=== PATIENT | male | born 1965 | race Caucasian/White ===

== ENCOUNTER 2018-12-29 05:48 | Inpatient (IN) | payer BC ==
[2018-12-28 10:58] VITALS: BMI 28.5
[~2018-12-29] VITALS: Ht 177.8 cm; Wt 93.4 kg
[2018-12-29] VITALS (41 sets, daily range): BP systolic 123–183; BP diastolic 57–104; PULSE 48–89; RESP 10–27; Ht 177.8 cm; Wt 93.4 kg
[2018-12-29] MEDS ORDERED: GELATIN SIZE 100 SPONGE ONE (06:56)
[2018-12-29] MEDS ORDERED: ROPIVACAINE 0.5 % 30 ML VIAL ONE ×2 (06:56→09:08)
[2018-12-29] MEDS ORDERED: THROMBIN (BOVINE) 5,000 UNIT VIAL TP ONE (06:56)
[2018-12-29] MEDS ORDERED: POLYMYXIN/BACITRACIN 1L IRRIG ONE (06:56)
[2018-12-29] MEDS ORDERED: LACTATED RINGER'S 1,000 ML IV SCH (07:00)
[2018-12-29] MEDS ORDERED: CEFAZOLIN 1 GM INJ ONE ×2 (07:00→08:37)
[2018-12-29] MEDS ORDERED: RAMI5CAP64 PO (07:02)
--- NOTE | 2018-12-29 07:10 | PREAC ---
Date/Time of Note Date/Time of Note DATE: 12/29/18 TIME: 07:09 Anesthesia Eval and Record Evaluation Time Pre-Procedure Interview DATE: 12/29/18 TIME: 07:09 Age 53 Sex male NPO: 8 hrs Preoperative diagnosis cervical spinal stenosis Planned procedure posterior cervical laminectomies and foraminotomies C3-C7 with instrumentation Past Medical History Past Medical History: Includes Cardio: HTN Surgery & Anesthesia Issues No known issue Meds Anticoagulation: No Beta Kyaw within 24 hr: No Reason Beta Kyaw not given: Pt. not on B-Kyaw Reported Medications Ramipril (Ramipril) 5 Mg Capsule, 5 MG PO EVERY OTHER DAY, CAP 12/29/18 Current Medications Lactated Ringer's 1,000 ml @ 25 mls/hr Q24H IV Last administered on 12/29/18at 07:06; Admin Dose 25 MLS/HR; Start 12/29/18 at 07:00 Meds reviewed: Yes Allergies Coded Allergies: No Known Allergy (Unverified , 12/28/18) Allergies Reviewed: Yes Labs/Studies Labs Reviewed: Reviewed by anesthesiologist Result Diagram: 12/29/18 0620 Laboratory Tests 12/29/18 06:20 test: N/A Pre-procedure Exam Last vitals Vital Signs Date Temp Pulse Resp B/P (MAP) Pulse Ox O2 O2 Flow FiO2 Time Delivery Rate 12/29/18 97.6 59 18 158/93 96 Room Air 06:53 (114) Airway: Adequate mouth opening, Adequate thyromental dist Mallampati: Mallampati II Teeth: Normal Lung: Normal Heart: Normal ASA Physical Status ASA physical status: 2 Emergency: None Planned Anesthetic General/MAC: ETT, A Line Planned Pain Management Parenteral pain med Pre-operative Attestations Prior to commencing anesthesia and surgery, the patient was re-evaluated, there was verification of: *The patient's identity *The results of appropriate recent lab work and preoperative vital signs *The above evaluation not changing prior to induction *Anesthetic plan, risk benefits, alternative and complications discussed with patient/family; questions answered; patient/family understands, accepts and wishes to proceed. RODRIGO AMBRIZ MD December 29, 2018 07:10
[2018-12-29] MEDS ORDERED: SOD CHLORIDE 0.9% 250 ML IV* ONE (07:24)
[2018-12-29] MEDS ORDERED: FENTAnyl 50 MCG/ML VIAL IV PRN ×2 (07:30)
[2018-12-29] MEDS ORDERED: MEPERIDINE 25 MG INJ IV PRN (07:30)
[2018-12-29] MEDS ORDERED: HYDROmorphONE 1 MG/5 ML IV SYRINGE IV PRN ×3 (07:30)
[2018-12-29] MEDS ORDERED: PROCHLORPERAZINE 10 MG INJ IV PRN (07:30)
[2018-12-29] MEDS ORDERED: LABETALOL HCL 20MG INJ IV PRN (07:30)
[2018-12-29] MEDS ORDERED: hydrALAzine 20 MG INJ IV PRN (07:30)
[2018-12-29] MEDS ORDERED: ONDANSETRON 4 MG INJ IV PRN (07:30)
[2018-12-29] MEDS ORDERED: DIPHENHYDRAMINE 50 MG INJ IV PRN (07:30)
[2018-12-29] MEDS ORDERED: PROPOFOL 20 ML ONE ×2 (08:07→08:57)
[2018-12-29] MEDS ORDERED: LIDOCAINE 2% (SDV) 5 ML INJ ONE (08:07)
[2018-12-29] MEDS ORDERED: MIDAZOLAM 1 MG/ML 2 ML INJ ONE (08:08)
[2018-12-29] MEDS ORDERED: ROCURONIUM 50 MG INJ ONE (08:09)
--- NOTE | 2018-12-29 08:13 | HPN ---
Date/Time of Note Date/Time of Note DATE: 12/29/18 TIME: 08:11 Interval H&P Admission Note Pt. seen H&P reviewed: No system changes Neurosurgery Preop Surgery Note Extensive d/w patient about all available options including surgery vs no surgery. Overall risk/complications 3-5 % overall discussed with patient at bedside. Dr. Mccullough discussed all risk/complications at bedside and all questions answered, no guarantees given. Post op IICU KATIE NORRIS NP December 29, 2018 08:13
[2018-12-29] MEDS ORDERED: DEXAMETHASONE 4 MG/ML 5 ML INJ ONE (08:37)
[2018-12-29] MEDS ORDERED: ONDANSETRON 4 MG INJ ONE (08:37)
[2018-12-29] MEDS ORDERED: EPHEDrine 25 MG/5 ML SYG ONE (08:37)
[2018-12-29] MEDS ORDERED: FAMOTIDINE 20 MG INJ ONE (08:37)
[2018-12-29] MEDS ORDERED: SUCCINYLCHOLINE CHLORIDE 100 MG/5 ML SYG IV ONE (09:06)
[2018-12-29] MEDS ORDERED: HYDROmorphONE 2 MG/ML SYG ONE (09:47)
[2018-12-29] MEDS ORDERED: GLYCOPYRROLATE 0.4 MG INJ ONE (10:45)
[2018-12-29] MEDS ORDERED: NEOSTIGMINE 3 MG/3 ML SYRINGE ONE (10:45)
--- NOTE | 2018-12-29 11:30 | OPPN ---
Date/Time of Note Date/Time of Note DATE: 12/29/18 TIME: 11:29 Operative Report Preoperative Diagnosis Cervical Myelopathy Postoperative Diagnosis same Operation/Procedure Performed PCDF C3-7 decompression and fusion Surgeon see signature line curatorial assistant SAMUEL Galvez, ACNP-BC Anesthesia: general Estimated blood loss: 50 - 100 ml's Transfusion Required none Specimen C3-7 Bones and Ligaments Grafts/Implants none Complications none MARTA ARMSTRONG MD December 29, 2018 11:30
--- NOTE | 2018-12-29 11:36 | PAC ---
Date/Time of Note Date/Time of Note DATE: 12/29/18 TIME: 11:35 Post-Anesthesia Notes Post-Anesthesia Note Last documented vital signs Vital Signs Date Temp Pulse Resp B/P (MAP) Pulse Ox O2 O2 Flow FiO2 Time Delivery Rate 12/29/18 97.6 59 18 158/93 96 Room Air 06:53 (114) Activity: WNL Respiratory function: WNL Cardiovascular function: WNL Mental status: Baseline Pain reasonably controlled: Yes Hydration appropriate: Yes Nausea/Vomiting absent: Yes Comments BP: 139/80 HR: 78 RR: 15 T: 98 SaO2: 100% RODRIGO AMBRIZ MD December 29, 2018 11:36
[2018-12-29] MEDS: FENTAnyl 50 MCG/ML VIAL IV PRN ×2 (11:40→12:05)
[2018-12-29] MEDS ORDERED: NACL 0.9% 3 ML SYG IV SCH (12:00)
[2018-12-29] MEDS ORDERED: NALOXONE (0.4 MG/ML) INJ IV PRN (12:00)
--- NOTE | 2018-12-29 13:17 | HP ---
Date/Time of Note Date/Time of Note DATE: 12/29/18 TIME: 13:13 Assessment/Plan Lines/Catheters IV Catheter Type (from Nrsg): Peripheral IV Assessment/Plan Assessment/Plan sp PCDF C3-7 decompression and fusion - Admit to ICU - per neuro surgery - pain control - wound care Cervical Myelopathy Hypertension Dw STAFF Result Diagram: 12/29/18 0620 12/29/18 0620 Results 24hrs Laboratory Tests Test 12/29/18 06:20 White Blood Count 3.4 L Red Blood Count 5.27 Hemoglobin 13.1 L Hematocrit 40.4 L Mean Corpuscular Volume 76.7 L Mean Corpuscular Hemoglobin 24.9 L Mean Corpuscular Hemoglobin Concent 32.4 Red Cell Distribution Width 13.7 Platelet Count 162 Mean Platelet Volume 11.1 H Immature Granulocytes % 0.600 H Neutrophils % 49.7 Lymphocytes % 37.2 Monocytes % 9.6 Eosinophils % 2.0 Basophils % 0.9 Nucleated Red Blood Cells % 0.0 Immature Granulocytes # 0.020 Neutrophils # 1.7 Lymphocytes # 1.3 Monocytes # 0.3 Eosinophils # 0.1 Basophils # 0.0 Nucleated Red Blood Cells # 0.0 CBC Results Faxed/Phoned 1 *H Prothrombin Time 12.8 Prothrombin Time Ratio 1.0 INR International Normalized Ratio 0.95 Activated Partial Thromboplast Time 28.8 Sodium Level 141 Potassium Level 3.9 Chloride Level 104 Carbon Dioxide Level 28 Anion Gap 9 Blood Urea Nitrogen 17 Creatinine 0.85 Est Glomerular Filtrat Rate mL/min > 60 Glucose Level 113 Calcium Level 10.0 Total Bilirubin 1.5 H Direct Bilirubin 0.00 Indirect Bilirubin 1.5 H Aspartate Amino Transf (AST/SGOT) 27 Alanine Aminotransferase (ALT/SGPT) 38 Alkaline Phosphatase 42 Total Protein 7.9 Albumin 4.5 Globulin 3.40 H Albumin/Globulin Ratio 1.32 HPI/ROS Admit Date/Time Admit Date/Time December 29, 2018 at 05:48 PMH/Family/Social Past Medical History Medications Current Medications Lactated Ringer's 1,000 ml @ 25 mls/hr Q24H IV Last administered on 12/29/18at 07:06; Admin Dose 25 MLS/HR; Start 12/29/18 at 07:00 Hydromorphone HCl (Dilaudid) 0.2 mg PACU PRN IV MILD PAIN 1-3; Start 12/29/18 at 07:30; Stop 12/29/18 at 17:00 Hydromorphone HCl (Dilaudid) 0.4 mg PACU PRN IV MOD PAIN 4-6; Start 12/29/18 at 07:30; Stop 12/29/18 at 17:00 Hydromorphone HCl (Dilaudid) 0.6 mg PACU PRN IV SEVERE PAIN 7-10 Last administered on 12/29/18at 12:22; Admin Dose 0.6 MG; Start 12/29/18 at 07:30; Stop 12/29/18 at 17:00 Fentanyl (Sublimaze) 25 mcg PACU ORDER PRN IV MILD PAIN 1-3; Start 12/29/18 at 07:30; Stop 12/29/18 at 17:00 Fentanyl (Sublimaze) 50 mcg PACU ORDER PRN IV MOD PAIN 4-6 Last administered on 12/29/18at 12:05; Admin Dose 50 MCG; Start 12/29/18 at 07:30; Stop 12/29/18 at 17:00 Fentanyl (Sublimaze) 75 mcg PACU ORDER PRN IV SEVERE PAIN 7-10; Start 12/29/18 at 07:30; Stop 12/29/18 at 17:00 Ondansetron HCl (Zofran Inj) 4 mg PACU ORDER PRN IV NAUSEA/VOMITING Last administered on 12/29/18at 12:22; Admin Dose 4 MG; Start 12/29/18 at 07:30; Stop 12/29/18 at 17:00 Prochlorperazine (Compazine Inj) 5 mg PACU ORDER PRN IV NAUSEA/VOMITING; Start 12/29/18 at 07:30; Stop 12/29/18 at 17:00 Labetalol HCl (Labetalol) 5 mg PACU ORDER PRN IV HIGH BLOOD PRESSURE; Start 12/29/18 at 07:30; Stop 12/29/18 at 17:00 Hydralazine HCl (Apresoline) 5 mg PACU ORDER PRN IV HIGH BLOOD PRESSURE; Start 12/29/18 at 07:30; Stop 12/29/18 at 17:00 Meperidine HCl (Demerol) 25 mg PACU ORDER PRN IV .RIGORS; Start 12/29/18 at 07:30; Stop 12/29/18 at 17:00 Diphenhydramine HCl (Benadryl) 25 mg PACU ORDER PRN IV .PRURITUS; Start 12/29/18 at 07:30; Stop 12/29/18 at 17:00 IV Flush (NS 3 ml) 3 ml PER PROTOCOL IV ; Start 12/29/18 at 12:00 Naloxone HCl (Narcan) 0.2 mg Q2M PRN IV RR 8 BREATHS/MIN OR LESS; Start 12/29/18 at 12:00 Cefazolin Sodium/ Dextrose 50 ml @ 100 mls/hr Q8 IVPB ; Start 12/29/18 at 14:00; Stop 01/01/19 at 14:00 Potassium Chloride/Sodium Chloride 1,000 ml @ 100 mls/hr Q10H IV ; Start 12/29/18 at 12:00 Acetaminophen/ Hydrocodone Bitart ([place] (10/325)) 1 tab Q4H PRN PO MODERATE PAIN LEVEL 4-6; Start 12/29/18 at 12:00 Hydromorphone HCl (Dilaudid) 1 mg Q4H PRN IV SEVERE PAIN LEVEL 7-10; Start 12/29/18 at 12:00 Coded Allergies: No Known Allergy (Unverified , 12/28/18) Social History Smoking Status: Never smoker Exam/Review of Systems Vital Signs Vitals Vital Signs Date Temp Pulse Resp B/P (MAP) Pulse Ox O2 O2 Flow FiO2 Time Delivery Rate 12/29/18 74 13 174/82 100 Mask 12:13 (112) 12/29/18 98.0 11:57 12/29/18 8.0 11:35 Exam Constitutional: alert, well developed Psych: nl mood/affect Eyes: nl lids, nl sclera ENMT: nl external ears & nose Respiratory: diminished breath sounds Cardiovascular: nl pulses, other (S1S2) Gastrointestinal: soft, non-tender Musculoskeletal: nl extremities to inspection Extremities: normal pulses Neurological: other (SP CX surgery- neck collar noted) ZOE MANUEL December 29, 2018 13:17
[2018-12-29] MEDS: HYDROmorphONE 1 MG/ML SYG IV PRN ×4 (13:51→23:37)
[2018-12-29] MEDS: CEFAZOLIN 2 GM/50 ML (PMX) 50 ML IVPB SCH ×2 (14:41→22:36)
[2018-12-29] MEDS: NS + KCL 20 MEQ 1,000 ML IV SCH ×2 (14:42→22:00)
[2018-12-29] MEDS: HYDROCODONE/APAP (10/325) TAB PO PRN (15:08)
--- NOTE | 2018-12-29 15:58 | RADRPT ---
Vent Rate: 56 bpm RR Interval: 1064 msec MD Interval: 164 msec QRS Duration: 102 msec QT Interval: 428 msec QTC Interval: 415 msec P-R-T [place]: 51 - 70 - 58 degrees Sinus Bradycardia...normal P axis, V-rate 50- 99 Electronically Signed By: Chung Heck
[2018-12-29] MEDS: hydrALAzine 20 MG INJ IV PRN (18:30)
[2018-12-29] MEDS: METOPROLOL 25 MG TAB PO SCH (20:17)
[2018-12-30] VITALS (34 sets, daily range): BP systolic 128–197; BP diastolic 56–87; PULSE 62–88; RESP 10–23
[2018-12-30] MEDS: HYDROmorphONE 1 MG/ML SYG IV PRN ×2 (02:35→20:55)
[2018-12-30] MEDS: NS + KCL 20 MEQ 1,000 ML IV SCH ×2 (02:48→13:16)
[2018-12-30] MEDS: HYDROCODONE/APAP (10/325) TAB PO PRN ×4 (06:21→17:05)
[2018-12-30] MEDS: CEFAZOLIN 2 GM/50 ML (PMX) 50 ML IVPB SCH ×3 (06:21→21:50)
[2018-12-30] MEDS: METOPROLOL 25 MG TAB PO SCH (08:38)
[2018-12-30] MEDS: hydrALAzine 20 MG INJ IV PRN (08:43)
[2018-12-30] MEDS ORDERED: METOPROLOL 25 MG TAB PO STA (09:48)
[2018-12-30] MEDS: BENAZEPRIL 20 MG TAB PO SCH (11:25)
--- NOTE | 2018-12-30 17:13 | PN ---
Date/Time of Note Date/Time of Note DATE: 12/30/18 TIME: 17:13 Assessment/Plan VTE Prophylaxis Risk score (from Ns)>0 risk: 3 SCD applied (from Ns): Yes Lines/Catheters IV C[facility] Type [facility]from [facility] A Line Urinary Cath still in place: Yes Assessment/Plan Result Diagram: 12/30/18 0436 12/30/18 0436 Results 24hrs Laboratory Tests Test 12/30/18 04:36 White Blood Count 9.1 # Red Blood Count 4.53 L Hemoglobin 11.3 L Hematocrit 35.2 L Mean Corpuscular Volume 77.7 L Mean Corpuscular Hemoglobin 24.9 L Mean Corpuscular Hemoglobin Concent 32.1 Red Cell Distribution Width 13.9 Platelet Count 178 Mean Platelet Volume 11.0 H Immature Granulocytes % 0.300 Neutrophils % 81.1 H Lymphocytes % 11.3 L Monocytes % 7.0 Eosinophils % 0.1 Basophils % 0.2 Nucleated Red Blood Cells % 0.0 Immature Granulocytes # 0.030 Neutrophils # 7.4 Lymphocytes # 1.0 Monocytes # 0.6 Eosinophils # 0.0 Basophils # 0.0 Nucleated Red Blood Cells # 0.0 Sodium Level 136 Potassium Level 4.6 Chloride Level 100 Carbon Dioxide Level 28 Anion Gap 8 Blood Urea Nitrogen 12 Creatinine 0.81 Est Glomerular Filtrat Rate mL/min > 60 Glucose Level 129 Calcium Level 9.0 Exam/Review of Systems Exam Vitals Vital Signs Date Temp Pulse Resp B/P (MAP) Pulse Ox O2 O2 Flow FiO2 Time Delivery Rate 12/30/18 70 20 149/60 99 Room Air 16:30 (89) 12/30/18 98.1 16:00 12/29/18 2.0 21:00 Intake and Output 12/29/18 12/29/18 12/30/18 1515:00 23:00 07:00 IntakeIntake Total 1750 ml 1570 ml 940 ml OutputOutput Total 1280 ml 900 ml 740 ml BalanceBalance 470 ml 670 ml 200 ml Results Results 24hrs Laboratory Tests Test 12/30/18 04:36 White Blood Count 9.1 # Red Blood Count 4.53 L Hemoglobin 11.3 L Hematocrit 35.2 L Mean Corpuscular Volume 77.7 L Mean Corpuscular Hemoglobin 24.9 L Mean Corpuscular Hemoglobin Concent 32.1 Red Cell Distribution Width 13.9 Platelet Count 178 Mean Platelet Volume 11.0 H Immature Granulocytes % 0.300 Neutrophils % 81.1 H Lymphocytes % 11.3 L Monocytes % 7.0 Eosinophils % 0.1 Basophils % 0.2 Nucleated Red Blood Cells % 0.0 Immature Granulocytes # 0.030 Neutrophils # 7.4 Lymphocytes # 1.0 Monocytes # 0.6 Eosinophils # 0.0 Basophils # 0.0 Nucleated Red Blood Cells # 0.0 Sodium Level 136 Potassium Level 4.6 Chloride Level 100 Carbon Dioxide Level 28 Anion Gap 8 Blood Urea Nitrogen 12 Creatinine 0.81 Est Glomerular Filtrat Rate mL/min > 60 Glucose Level 129 Calcium Level 9.0 Medications Medication Current Medications IV Flush (NS 3 ml) 3 ml PER PROTOCOL IV ; Start 12/29/18 at 12:00 Naloxone HCl (Narcan) 0.2 mg Q2M PRN IV RR 8 BREATHS/MIN OR LESS; Start 12/29/18 at 12:00 Cefazolin Sodium/ Dextrose 50 ml @ 100 mls/hr Q8 IVPB Last administered on 12/30/18at 14:52; Admin Dose 100 MLS/HR; Start 12/29/18 at 14:00; Stop 01/01/19 at 14:00 Potassium Chloride/Sodium Chloride 1,000 ml @ 100 mls/hr Q10H IV Last administered on 12/30/18at 13:16; Admin Dose 100 MLS/HR; Start 12/29/18 at 12:00 Acetaminophen/ Hydrocodone Bitart ([place] (10/325)) 1 tab Q4H PRN PO MODERATE PAIN LEVEL 4-6 Last administered on 12/30/18at 17:05; Admin Dose 1 TAB; Start 12/29/18 at 12:00 Hydralazine HCl (Apresoline) 20 mg Q6H PRN IV ELEVATED BLOOD PRESSURE Last administered on 12/30/18at 08:43; Admin Dose 20 MG; Start 12/29/18 at 18:30 Hydromorphone HCl (Dilaudid) 1 mg Q3H PRN IV SEVERE PAIN LEVEL 7-10 Last administered on 12/30/18at 02:35; Admin Dose 1 MG; Start 12/29/18 at 18:30 Metoprolol Tartrate (Lopressor) 50 mg BID PO ; Start 12/30/18 at 21:00 Benazepril HCl (Lotensin) 20 mg DAILY PO Last administered on 12/30/18at 11:25; Admin Dose 20 MG; Start 12/30/18 at 11:00 MARTA ARMSTRONG MD December 30, 2018 17:13
[2018-12-30] MEDS: METOPROLOL 50 MG TAB PO SCH (20:03)
[2018-12-31] VITALS (10 sets, daily range): BP systolic 132–150; BP diastolic 72–88; PULSE 50–74; RESP 18–20
[2018-12-31] MEDS: HYDROmorphONE 1 MG/ML SYG IV PRN ×4 (00:08→14:25)
--- NOTE | 2018-12-31 00:42 | PN ---
DATE: 12/30/2018 LOCATION: ICU. SUBJECTIVE: The patient is breathing comfortably. Postoperative pain still persists. The patient's blood pressure is better controlled today. No reported temperature spike. No reported vomiting. N o reported abdominal pain. The patient moves all extremities. He remains awake and alert. Left rad ial art line in place. PHYSICAL EXAMINATION: GENERAL: Revealed the patient to be awake, alert. VITAL SIGNS: Temperature 97.8, pulse 68, respirations , blood pressure 150/70, O2 sat 96% on ro om air. HEENT: No eye discharge or redness. Conjunctivae are normal. NECK: C-spine collar in place. CHEST: Fairly clear. CARDIOVASCULAR: S1, S2 normal. No murmur. ABDOMEN: Soft, nondistended, nontender. EXTREMITIES: No edema. NEUROLOGIC: The patient is awake, alert, fairly oriented. LABORATORY DATA: Labs done this morning: WBC 9.1, hemoglobin 9.3, platelet 178. Chemistry: Sodium 136, potassium 4.6, BUN 12, creatinine 0.8, glucose 129, calcium 9. IMPRESSION: 1. Cervical myelopathy due to cervical spinal stenosis, status post surgery. 2. Hypertension. Last night, patient's blood pressure was out of control and the patient was starte d on metoprolol, and subsequently his home medication, benazepril, was also resumed. The patient rem ains on IV hydralazine on a p.r.n. basis. PLAN: Continue IV Dilaudid q.3 hours p.r.n. for pain control, IV cefazolin as per protocol. The pat ient will be moved out of ICU once cleared by Neurosurgery. We will continue to monitor him closely in ICU. Left radial art line in place. Dictated By: VIOLETTE WRIGHT MD AB/NTS Conf#: [id number] DID#: [id number] CC: MARTA ARMSTRONG MD;*EndCC*
[2018-12-31] MEDS: CEFAZOLIN 2 GM/50 ML (PMX) 50 ML IVPB SCH ×3 (06:05→22:31)
[2018-12-31] MEDS: BENAZEPRIL 20 MG TAB PO SCH (08:22)
[2018-12-31] MEDS: METOPROLOL 50 MG TAB PO SCH ×2 (08:22→20:20)
[2018-12-31] MEDS: HYDROCODONE/APAP (10/325) TAB PO PRN ×3 (10:44→20:38)
--- NOTE | 2018-12-31 12:10 | PN ---
Date/Time of Note Date/Time of Note DATE: 12/31/18 TIME: 12:09 Assessment/Plan VTE Prophylaxis Risk score (from Ns)>0 risk: 4 SCD applied (from Ns): Yes Pharmacological prophylaxis: LMWH Lines/Catheters IV Catheter Type (from Nrsg): Saline Lock Urinary Cath still in place: Yes Reason Cath still needed: skin wounds contaminated by urine Assessment/Plan Hospital Course 1. Cervical myelopathy due to cervical spinal stenosis, status post surgery. 2. Hypertension. Last night, patient's blood pressure was out of control and the patient was started on metoprolol, and subsequently his home medication, benazepril, was also resumed. The patient remains on IV hydralazine on a p.r.n. basis. Result Diagram: 12/30/18 0436 12/30/18 0436 Subjective 24 Hr Interval Summary Free Text/Dictation Still has some neck pain Exam/Review of Systems Exam Vitals Vital Signs Date Temp Pulse Resp B/P (MAP) Pulse Ox O2 O2 Flow FiO2 Time Delivery Rate 12/31/18 73 08:12 12/31/18 98.6 18 150/80 98 Room Air 08:04 (103) 12/29/18 2.0 21:00 Intake and Output 12/30/18 12/30/18 12/31/18 1414:59 22:59 06:59 IntakeIntake Total 1900 ml 650 ml 600 ml OutputOutput Total 1980 ml 1070 ml 1585 ml BalanceBalance -80 ml -420 ml -985 ml Constitutional: well developed Head: normocephalic, atraumatic Neck: supple Respiratory: diminished breath sounds Cardiovascular: regular rate and rhythm Gastrointestinal: soft, non-tender Extremities: normal pulses Medications Medication Current Medications IV Flush (NS 3 ml) 3 ml PER PROTOCOL IV ; Start 12/29/18 at 12:00 Naloxone HCl (Narcan) 0.2 mg Q2M PRN IV RR 8 BREATHS/MIN OR LESS; Start 12/29/18 at 12:00 Cefazolin Sodium/ Dextrose 50 ml @ 100 mls/hr Q8 IVPB Last administered on 12/31/18at 06:05; Admin Dose 100 MLS/HR; Start 12/29/18 at 14:00; Stop 01/01/19 at 14:00 Acetaminophen/ Hydrocodone Bitart ([place] (10/325)) 1 tab Q4H PRN PO MODERATE PAIN LEVEL 4-6 Last administered on 12/31/18 10:44; Admin Dose 1 TAB; Start 12/29/18 at 12:00 Hydralazine HCl (Apresoline) 20 mg Q6H PRN IV ELEVATED BLOOD PRESSURE Last administered on 12/30/18 08:43; Admin Dose 20 MG; Start 12/29/18 at 18:30 Hydromorphone HCl (Dilaudid) 1 mg Q3H PRN IV SEVERE PAIN LEVEL 7-10 Last administered on 12/31/18 07:25; Admin Dose 1 MG; Start 12/29/18 at 18:30 Metoprolol Tartrate (Lopressor) 50 mg BID PO Last administered on 12/31/18 08:22; Admin Dose 50 MG; Start 12/30/18 at 21:00 Benazepril HCl (Lotensin) 20 mg DAILY PO Last administered on 12/31/18 08:22; Admin Dose 20 MG; Start 12/30/18 at 11:00 BRITTON RESENDEZ December 31, 2018 12:10
[2018-12-31] MEDS: METHOCARBAMOL 750 MG TAB PO PRN (19:27)
[2019-01-01] VITALS (10 sets, daily range): BP systolic 131–147; BP diastolic 80–95; PULSE 60–72; RESP 16–20
[2019-01-01] MEDS: HYDROCODONE/APAP (10/325) TAB PO PRN ×6 (00:39→22:55)
[2019-01-01] MEDS: CEFAZOLIN 2 GM/50 ML (PMX) 50 ML IVPB SCH ×2 (05:43→13:58)
[2019-01-01] MEDS: METHOCARBAMOL 750 MG TAB PO PRN ×2 (06:34→20:03)
[2019-01-01] MEDS: BENAZEPRIL 20 MG TAB PO SCH (10:19)
[2019-01-01] MEDS: METOPROLOL 50 MG TAB PO SCH ×2 (10:19→20:03)
--- NOTE | 2019-01-01 12:51 | PN ---
Date/Time of Note Date/Time of Note DATE: 01/01/19 TIME: 12:50 Assessment/Plan VTE Prophylaxis Risk score (from Ns)>0 risk: 3 SCD applied (from Ns): Yes Pharmacological prophylaxis: LMWH Lines/Catheters IV Catheter Type (from Nrsg): Saline Lock Urinary Cath still in place: Yes Reason Cath still needed: skin wounds contaminated by urine Assessment/Plan Hospital Course 1. Cervical myelopathy due to cervical spinal stenosis, status post surgery. 2. Hypertension. Last night, patient's blood pressure was out of control and the patient was started on metoprolol, and subsequently his home medication, benazepril, was also resumed. The patient remains on IV hydralazine on a p.r.n. basis. Result Diagram: 12/30/18 0436 12/30/18 0436 Subjective 24 Hr Interval Summary Free Text/Dictation Patient still has pain in back but is starting to mobilize Exam/Review of Systems Exam Vitals Vital Signs Date Temp Pulse Resp B/P (MAP) Pulse Ox O2 O2 Flow FiO2 Time Delivery Rate 01/01/19 67 12:36 01/01/19 98.7 16 146/80 98 Room Air 12:04 (102) 12/29/18 2.0 21:00 Intake and Output 12/31/18 12/31/18 01/01/19 1515:00 23:00 07:00 IntakeIntake Total 1250 ml 50 ml OutputOutput Total 30 ml 50 ml 30 ml BalanceBalance -30 ml 1200 ml 20 ml Constitutional: well developed Head: normocephalic, atraumatic Neck: supple Respiratory: clear to auscultation Cardiovascular: regular rate and rhythm Gastrointestinal: soft, non-tender Extremities: normal pulses Medications Medication Current Medications IV Flush (NS 3 ml) 3 ml PER PROTOCOL IV ; Start 12/29/18 at 12:00 Naloxone HCl (Narcan) 0.2 mg Q2M PRN IV RR 8 BREATHS/MIN OR LESS; Start 12/29/18 at 12:00 Cefazolin Sodium/ Dextrose 50 ml @ 100 mls/hr Q8 IVPB Last administered on 01/01/19at 05:43; Admin Dose 100 MLS/HR; Start 12/29/18 at 14:00; Stop 01/01/19 at 14:00 Acetaminophen/ Hydrocodone Bitart ([place] ()) 1 tab Q4H PRN PO MODERATE PAIN LEVEL 4-6 Last administered on 01/01/19 10:21; Admin Dose 1 TAB; Start 12/29/18 at 12:00 Hydralazine HCl (Apresoline) 20 mg Q6H PRN IV ELEVATED BLOOD PRESSURE Last administered on 12/30/18 08:43; Admin Dose 20 MG; Start 12/29/18 at 18:30 Hydromorphone HCl (Dilaudid) 1 mg Q3H PRN IV SEVERE PAIN LEVEL 7-10 Last ad ministered on 12/31/18 14:25; Admin Dose 1 MG; Start 12/29/18 at 18:30 Metoprolol Tartrate (Lopressor) 50 mg BID PO Last administered on 01/01/19 10:19; Admin Dose 50 MG; Start 12/30/18 at 21:00 Benazepril HCl (Lotensin) 20 mg DAILY PO Last administered on 01/01/19 10:19; Admin Dose 20 MG; Start 12/30/18 at 11:00 Methocarbamol (Robaxin) 750 mg Q8H PRN PO MUSCLE SPASM Last administered on 01/01/19 06:34; Admin Dose 750 MG; Start 12/31/18 at 17:00 BRITTON RESENDEZ January 01, 2019 12:51
[2019-01-01] MEDS: DOCUSATE SODIUM 100 MG CAP PO SCH (13:58)
[2019-01-02] VITALS (10 sets, daily range): BP systolic 139–154; BP diastolic 78–90; PULSE 63–79; RESP 16–20
[2019-01-02] MEDS: HYDROCODONE/APAP (10/325) TAB PO PRN ×4 (03:32→22:40)
[2019-01-02] MEDS: METHOCARBAMOL 750 MG TAB PO PRN ×2 (07:29→20:37)
[2019-01-02] MEDS: BENAZEPRIL 20 MG TAB PO SCH (08:31)
[2019-01-02] MEDS: DOCUSATE SODIUM 100 MG CAP PO SCH (08:31)
[2019-01-02] MEDS: METOPROLOL 50 MG TAB PO SCH ×2 (08:32→20:38)
--- NOTE | 2019-01-02 13:19 | PN ---
Date/Time of Note Date/Time of Note DATE: 01/02/19 TIME: 13:18 Assessment/Plan VTE Prophylaxis Risk score (from Ns)>0 risk: 3 SCD applied (from Ns): Yes Pharmacological prophylaxis: NA/contraindicated Pharm contraindication: surgical contra Lines/Catheters IV Catheter Type (from Nrsg): Saline Lock Urinary Cath still in place: No Assessment/Plan Hospital Course Patient still complains of pain however it is manageable on current pain medication, continue out of bed and ambulation, continue cervical collar. If patient continues to improve anticipate discharge home tomorrow. Assessment/Plan -Cervical myelopathy due to cervical spinal stenosis, status post PCDF C3-7 decompression and fusion by Dr. Mccullough on 12/29/18. Continue pain management, physical therapy,collar x 6 weeks when oob or HOB > 30 degrees. -Hypertension. Continue metoprolol and benazepril, IV hydralazine on a p.r.n. basis. Further recommendations based on clinical course. Plan of care discussed with Dr. Kirk. Result Diagram: 12/30/18 0436 12/30/18 0436 Exam/Review of Systems Exam Vitals Vital Signs Date Temp Pulse Resp B/P (MAP) Pulse Ox O2 O2 Flow FiO2 Time Delivery Rate 01/02/19 98.0 67 18 145/82 98 12:24 (103) 01/02/19 Room Air 00:00 12/29/18 2.0 21:00 Intake and Output 01/01/19 01/01/19 01/02/19 1515:00 23:00 07:00 IntakeIntake Total 900 ml 2550 ml OutputOutput Total 1130 ml 1140 ml 15 ml BalanceBalance -230 ml 1410 ml -15 ml Constitutional: alert, oriented Neck: other (S/p surgery, cervical collar) Respiratory: clear to auscultation Cardiovascular: regular rate and rhythm Gastrointestinal: soft, non-tender Extremities: normal pulses Neurological: nl mental status Medications Medication Current Medications IV Flush (NS 3 ml) 3 ml PER PROTOCOL IV ; Start 12/29/18 at 12:00 Naloxone HCl (Narcan) 0.2 mg Q2M PRN IV RR 8 BREATHS/MIN OR LESS; Start 12/29/18 at 12:00 Acetaminophen/ Hydrocodone Bitart ([place] (10/325)) 1 tab Q4H PRN PO MODERATE PAIN LEVEL 4-6 Last administered on 01/02/19 12:44; Admin Dose 1 TAB; Start 12/29/18 at 12:00 Hydralazine HCl (Apresoline) 20 mg Q6H PRN IV ELEVATED BLOOD PRESSURE Last administered on 12/30/18 08:43; Admin Dose 20 MG; Start 12/29/18 at 18:30 Hydromorphone HCl (Dilaudid) 1 mg Q3H PRN IV SEVERE PAIN LEVEL 7-10 Last administered on 12/31/18 14:25; Admin Dose 1 MG; Start 12/29/18 at 18:30 Metoprolol Tartrate (Lopressor) 50 mg BID PO Last administered on 01/02/19 08:32; Admin Dose 50 MG; Start 12/30/18 at 21:00 Benazepril HCl (Lotensin) 20 mg DAILY PO Last administered on 01/02/19 08:31; Admin Dose 20 MG; Start 12/30/18 at 11:00 Methocarbamol (Robaxin) 750 mg Q8H PRN PO MUSCLE SPASM Last administered on 01/02/19 07:29; Admin Dose 750 MG; Start 12/31/18 at 17:00 Docusate Sodium (Colace) 100 mg DAILY PO Last administered on 01/02/19 08:31; Admin Dose 100 MG; Start 01/01/19 at 14:00 DANIEL TALAMANTES January 02, 2019 13:19
--- NOTE | 2019-01-02 14:16 | PN ---
Date/Time of Note Date/Time of Note DATE: 01/02/19 TIME: 14:12 Assessment/Plan VTE Prophylaxis Risk score (from Nsg)>0 risk: 3 SCD applied (from Nsg): Yes SCD contraindicated: low risk/ambulating Pharmacological prophylaxis: NA/contraindicated Pharm contraindication: low risk/ambulating Lines/Catheters IV Catheter Type (from Nrsg): Saline [place] line still needed: No Urinary Cath still in place: No Assessment/Plan Assessment/Plan Plan dc planning in am destin drain dc'd okay to shower in am and keep area open to air follow up in 7 days to remove beba collar x 6 weeks when oob or HOB > 30 degrees Result Diagram: 12/30/18 0436 12/30/18 0436 Subjective 24 Hr Interval Summary Free Text/Dictation Neurosurgery Progress note doing well, family at bedside. Exam/Review of Systems Exam Vitals Vital Signs Date Temp Pulse Resp B/P (MAP) Pulse Ox O2 O2 Flow FiO2 Time Delivery Rate 01/02/19 98.0 67 18 145/82 98 12:24 (103) 01/02/19 Room Air 00:00 12/29/18 2.0 21:00 Intake and Output 01/01/19 01/01/19 01/02/19 1515:00 23:00 07:00 IntakeIntake Total 900 ml 2550 ml OutputOutput Total 1130 ml 1140 ml 15 ml BalanceBalance -230 ml 1410 ml -15 ml Neurological: other (MS: AAOX4 CN: PERRL M: fC x 4 ) Medications Medication Current Medications IV Flush (NS 3 ml) 3 ml PER PROTOCOL IV ; Start 12/29/18 at 12:00 Naloxone HCl (Narcan) 0.2 mg Q2M PRN IV RR 8 BREATHS/MIN OR LESS; Start 12/29/18 at 12:00 Acetaminophen/ Hydrocodone Bitart ([place] (10/325)) 1 tab Q4H PRN PO MODERATE PAIN LEVEL 4-6 Last administered on 01/02/19at 12:44; Admin Dose 1 TAB; Start 12/29/18 at 12:00 Hydralazine HCl (Apresoline) 20 mg Q6H PRN IV ELEVATED BLOOD PRESSURE Last administered on 12/30/18at 08:43; Admin Dose 20 MG; Start 12/29/18 at 18:30 Hydromorphone HCl (Dilaudid) 1 mg Q3H PRN IV SEVERE PAIN LEVEL 7-10 Last administered on 12/31/18 14:25; Admin Dose 1 MG; Start 12/29/18 at 18:30 Metoprolol Tartrate (Lopressor) 50 mg BID PO Last administered on 01/02/19 08:32; Admin Dose 50 MG; Start 12/30/18 at 21:00 Benazepril HCl (Lotensin) 20 mg DAILY PO Last administered on 01/02/19 08:31; Admin Dose 20 MG; Start 12/30/18 at 11:00 Methocarbamol (Robaxin) 750 mg Q8H PRN PO MUSCLE SPASM Last administered on 01/02/19 07:29; Admin Dose 750 MG; Start 12/31/18 at 17:00 Docusate Sodium (Colace) 100 mg DAILY PO Last administered on 01/02/19 08:31; Admin Dose 100 MG; Start 01/01/19 at 14:00 MARTA ARMSTRONG MD January 02, 2019 14:16
[2019-01-03] VITALS (10 sets, daily range): BP systolic 124–160; BP diastolic 68–94; PULSE 63–91; RESP 19–20
[2019-01-03] MEDS ORDERED: LIDOCAINE 5% PATCH TD ONE
[2019-01-03] MEDS ORDERED: DICLOFENAC SODIUM 1% GEL 100 GM TUBE TP PRN
[2019-01-03] MEDS: HYDROmorphONE 1 MG/ML SYG IV PRN (01:46)
[2019-01-03] MEDS: HYDROCODONE/APAP (10/325) TAB PO PRN ×3 (05:48→16:54)
[2019-01-03] MEDS: METOPROLOL 50 MG TAB PO SCH (08:30)
[2019-01-03] MEDS: BENAZEPRIL 20 MG TAB PO SCH (08:30)
[2019-01-03] MEDS: DOCUSATE SODIUM 100 MG CAP PO SCH (08:30)
[2019-01-03] MEDS ORDERED: METO-429 PO (16:51)
[2019-01-03] MEDS ORDERED: BENA20TA4 PO (16:51)
[2019-01-03] MEDS ORDERED: METH750T2 PO (16:51)
[2019-01-03] MEDS ORDERED: DOCU-144 PO (16:51)
[2019-01-03] MEDS ORDERED: NEOM28OI2 TP (16:51)
[2019-01-03] MEDS ORDERED: HYDR-4011 PO (16:51)
--- NOTE | 2019-01-03 20:49 | DS ---
Date/Time of Note Date/Time of Note DATE: 01/03/19 TIME: 20:46 Discharge Summary Admission/Discharge Info Admit Date/Time December 29, 2018 at 05:48 Discharge Date/Time January 03, 2019 at 18:30 Patient Condition: Stable Hx of Present Illness The patient is a 53-year-old gentleman with history of hypertension. Patient was evaluated by neurosurgeon for cervical myelopathy due to cervical spinal stenosis. Patient underwent PCDF C3-7 decompression and fusion by Dr. Mccullough on 12/29/18. Hospital Course -Cervical myelopathy due to cervical spinal stenosis, status post PCDF C3-7 decompression and fusion by Dr. Mccullough on 12/29/18. Continue pain management, physical therapy,collar x 6 weeks when oob or HOB > 30 degrees. -Hypertension. Continue metoprolol and benazepril, IV hydralazine on a p.r.n. basis. Plan of care discussed with Dr. Kirk. Home Meds Active Scripts Neomycin Leo/Bacitrac Zn/Poly (Triple Antibiotic Ointment) 28 Gm Oint...g., 28 GM TP BID for 10 Days, #1 Prov:DANIEL TALAMANTES 01/03/19 Methocarbamol* (Methocarbamol*) 750 Mg Tablet, 750 MG PO Q8H PRN for MUSCLE SPASM, #30 TAB Prov:DANIEL TALAMANTES 01/03/19 Hydrocodone/Acetaminophen ([place] 5-325 Tablet) 1 Each Tablet, 1 EACH PO Q4, #20 TAB Prov:DANIEL TALAMANTES 01/03/19 Docusate Sodium* (Colace*) 100 Mg Capsule, 100 MG PO DAILY for 30 Days, CAP Prov:DANIEL TALAMANTES 01/03/19 Benazepril Hcl* (Benazepril Hcl*) 20 Mg Tablet, 20 MG PO DAILY for 30 Days, TAB Prov:DANIEL TALAMANTES 01/03/19 Metoprolol Tartrate* (Lopressor*) 50 Mg Tab, 50 MG PO BID for 30 Days, TAB Prov:DANIEL TALAMANTES 01/03/19 Discontinued Reported Medications Ramipril (Ramipril) 5 Mg Capsule, 5 MG PO EVERY OTHER DAY, CAP 12/29/18 Follow-up Plan Discharge home after DME:toilet seat and walker arranged by case management okay to shower in am and keep area open to air follow up with DR Mccullough in 7 days to remove beba collar x 6 weeks when oob or HOB > 30 degrees Primary Care Provider Not On Staff Doctor Time spent on discharge: > 30 minutes DANIEL TALAMANTES January 03, 2019 20:49
== END 2019-01-03 18:30 | disposition home or self-care (01) | DRG 472 ==
LOC: EDSEX 05:48 → REC 05:48 → EDSTATUS 07:30 → ICU 13:49 → TEL 12-30 22:35
PROVIDERS: ADMIT Neurological Surgery; ATTEND Internal Medicine
PROC: 0RG2071 Fusion of 2 or more Cervical Vertebral Joints with Autologous Tissue Substitute, Posterior Approach, Posterior Column, Open Approach (ICD-10-PCS; principal; 2018-12-29 07:30)
DX: M48.02 Spinal stenosis, cervical region (principal); G99.2 Myelopathy in diseases classified elsewhere; I10 Essential (primary) hypertension
CPT/HCPCS: 71045; 72020; 72125; 80048; 80053; 85025; 85610; 85730; 86850; 86900; 86901; 86920; 87081; 87086; 88304; 88311; 93005; 97116; 97162; 97530; J0360; J0690; J1100; J1170; J2250; J2405; J2710; J2795; J3010; J3480; J7120

== ENCOUNTER 2019-02-13 22:06 | Inpatient (IN) | payer BC ==
[~2019-02-13] VITALS: Ht 177.8 cm; Wt 89.7 kg
[~2019-02-13 22:06] MED LIST: BENA20TA4 PO; DOCU-144 PO; HYDR-4011 PO; METH750T2 PO; METO-429 PO; NEOM28OI2 TP
[2019-02-13] MEDS ORDERED: ONDANSETRON 4 MG INJ IV STA (22:33)
[2019-02-13] MEDS ORDERED: HYDROmorphONE 1 MG/ML SYG IV STA (22:33)
[2019-02-13] MEDS ORDERED: SOD CHLORIDE 0.9% 500 ML IV STA (22:33)
[2019-02-14] MEDS ORDERED: ACETAMINOPHEN 325 MG TAB PO PRN (01:00)
[2019-02-14] MEDS ORDERED: ONDANSETRON 4 MG INJ IV PRN ×2 (01:00→14:00)
--- NOTE | 2019-02-14 02:28 | ERD ---
ER Documentation Chief Complaint Chief Complaint RIGHT LEG; HX OF NERVE PAIN ON/OFF 1MONTH HPI Is a 53-year-old male with a history of nerve impingement causing right leg pain and weakness. He was sent to my neurosurgeon Dr. Mccullough for further evaluation management and admission for pain management. Patient says his pain is gotten intractable over the past 2 to 3 days with no relief with home medications. ROS All systems reviewed and are negative except as per history of present illness. Medications Home Meds Active Scripts Neomycin Leo/Bacitrac Zn/Poly (Triple Antibiotic Ointment) 28 Gm Oint...g., 28 GM TP BID for 10 Days, #1 Prov:BELLE TALAMANTESA 01/03/19 Methocarbamol* (Methocarbamol*) 750 Mg Tablet, 750 MG PO Q8H PRN for MUSCLE SPASM, #30 TAB Prov:DANIEL TALAMANTES 01/03/19 Hydrocodone/Acetaminophen ([place] 5-325 Tablet) 1 Each Tablet, 1 EACH PO Q4, #20 TAB Prov:DANIEL TALAMANTES 01/03/19 Docusate Sodium* (Colace*) 100 Mg Capsule, 100 MG PO DAILY for 30 Days, CAP Prov:DANIEL TALAMANTES 01/03/19 Benazepril Hcl* (Benazepril Hcl*) 20 Mg Tablet, 20 MG PO DAILY for 30 Days, TAB Prov:DANIEL TALAMANTES 01/03/19 Metoprolol Tartrate* (Lopressor*) 50 Mg Tab, 50 MG PO BID for 30 Days, TAB Prov:DANIEL TALAMANTES 01/03/19 Allergies Allergies: Coded Allergies: No Known Allergy (Unverified , 12/28/18) PMhx/Soc History of Surgery: Yes (OPEN APPY, L3-L4, LT KNEE MENISCUS, LAP ANG, RT HAND SX, NOSE SX) Anesthesia Reaction: No Hx Neurological Disorder: No Hx Respiratory Disorders: No Hx Cardiac Disorders: Yes (HTN) Hx Psychiatric Problems: No Hx Miscellaneous Medical Probl: Yes (See note) Hx Alcohol Use: No Hx Substance Use: No Hx Tobacco Use: No Smoking Status: Never smoker Physical Exam Vitals Vital Signs Date Temp Pulse Resp B/P (MAP) Pulse Ox O2 O2 Flow FiO2 Time Delivery Rate 02/14/19 78 16 157/97 99 Room Air 01:00 (117) 02/13/19 98.2 18 19 177/99 99 22:11 (125) Physical Exam Const: No acute distress Head: Atraumatic Eyes: Normal Conjunctiva ENT: Normal External Ears, Nose and Mouth. Neck: Full range of motion. No meningismus. Resp: Clear to auscultation bilaterally Cardio: Regular rate and rhythm, no murmurs Abd: Soft, non tender, non distended. Normal bowel sounds Skin: No petechiae or rashes Back: No midline or flank tenderness Ext: No cyanosis, or edema Neur: Awake and alert Psych: Normal Mood and Affect Result Diagram: 02/13/19224902/13/192249 Results 24 hrs Laboratory Tests Test 02/13/19 22:50 White Blood Count 4.5 10^3/ul Red Blood Count 4.72 10^6/ul Hemoglobin 11.7 g/dl Hematocrit 37.2 % Mean Corpuscular Volume 78.8 fl Mean Corpuscular Hemoglobin 24.8 pg Mean Corpuscular Hemoglobin Concent 31.5 g/dl Red Cell Distribution Width 13.8 % Platelet Count 184 10^3/UL Mean Platelet Volume 10.5 fl Immature Granulocytes % 0.900 % Neutrophils % 55.8 % Lymphocytes % 33.9 % Monocytes % 6.5 % Eosinophils % 2.2 % Basophils % 0.7 % Nucleated Red Blood Cells % 0.0 /100WBC Immature Granulocytes # 0.040 10^3/ul Neutrophils # 2.5 10^3/ul Lymphocytes # 1.5 10^3/ul Monocytes # 0.3 10^3/ul Eosinophils # 0.1 10^3/ul Basophils # 0.0 10^3/ul Nucleated Red Blood Cells # 0.0 10^3/ul Prothrombin Time 12.0 Sec Prothrombin Time Ratio 0.9 INR International Normalized Ratio 0.88 Activated Partial Thromboplast Time 27.9 Sec Sodium Level 140 mmol/L Potassium Level 3.8 mmol/L Chloride Level 102 mmol/L Carbon Dioxide Level 28 mmol/L Anion Gap 10 Blood Urea Nitrogen 14 mg/dl Creatinine 0.86 mg/dl Est Glomerular Filtrat Rate mL/min > 60 mL/min Glucose Level 131 mg/dl Calcium Level 9.7 mg/dl Total Bilirubin 0.7 mg/dl Direct Bilirubin 0.00 mg/dl Indirect Bilirubin 0.7 mg/dl Aspartate Amino Transf (AST/SGOT) 22 IU/L Alanine Aminotransferase (ALT/SGPT) 28 IU/L Alkaline Phosphatase 51 IU/L Total Protein 7.7 g/dl Albumin 4.6 g/dl Globulin 3.10 g/dl Albumin/Globulin Ratio 1.48 Lipase 109 U/L Current Medications Medications Dose Sig/La Start Time Status Last (Trade) Ordered Route PRN Stop Time Admin Dose Reason Admin Sodium 500 ml @ Q1H STAT 02/13/19 DC 02/13/19 Chloride 500 mls/hr IV 22:33 22:58 02/13/19 23:32 1 mg ONCE STAT 02/13/19 DC Hydromorphone IV 22:33 HCl 02/13/19 22:34 (Dilaudid) Ondansetron 4 mg ONCE STAT 02/13/19 DC HCl (Zofran IV 22:33 Inj) 02/13/19 22:34 Ondansetron 4 mg BRIDGE ORDER 02/14/19 HCl (Zofran PRN IV 01:00 Inj) NAUSEA/VOMITI 02/15/19 00:59 NG 650 mg ER BRIDGE 02/14/19 Acetaminophen PRN PO 01:00 (Tylenol .MILD PAIN 02/15/19 00:59 Tab) 1-3 OR TEMP Procedures/MDM Medical decision makin-year-old male here for essentially intractable back pain. Dr. Bard hull is currently accepted patient to his service. Dr. Mccullough will consult. Departure Diagnosis: Primary Impression: Intractable back pain Condition: Stable KO QURESHI Feb 14, 2019 02:28
[2019-02-14] MEDS ORDERED: ASPI-817 PO (02:50)
[2019-02-14] MEDS ORDERED: ERGO500013 PO (02:50)
[2019-02-14] MEDS ORDERED: LORA10TA3 PO (02:50)
[2019-02-14] MEDS ORDERED: RAMI5CAP64 PO (02:50)
[2019-02-14 11:08] VITALS: BP 163/94; PULSE 58; RESP 16
--- NOTE | 2019-02-14 13:27 | HP ---
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 Dr. Mccullough is following in neurosurgery consultation. -Hypertension. Continue metoprolol and benazepril, IV hydralazine on a p.r.n. basis. Further recommendations based on clinical course. Plan of care discussed with Dr. Kirk. Result Diagram: 02/13/190 02/13/19 2250 Results 24hrs Laboratory Tests Test 02/13/19 22:50 White Blood Count 4.5 #L Red Blood Count 4.72 Hemoglobin 11.7 L Hematocrit 37.2 L Mean Corpuscular Volume 78.8 L Mean Corpuscular Hemoglobin 24.8 L Mean Corpuscular Hemoglobin Concent 31.5 L Red Cell Distribution Width 13.8 Platelet Count 184 Mean Platelet Volume 10.5 H Immature Granulocytes % 0.900 H Neutrophils % 55.8 Lymphocytes % 33.9 Monocytes % 6.5 Eosinophils % 2.2 Basophils % 0.7 Nucleated Red Blood Cells % 0.0 Immature Granulocytes # 0.040 H Neutrophils # 2.5 Lymphocytes # 1.5 Monocytes # 0.3 Eosinophils # 0.1 Basophils # 0.0 Nucleated Red Blood Cells # 0.0 Prothrombin Time 12.0 Prothrombin Time Ratio 0.9 INR International Normalized Ratio 0.88 Activated Partial Thromboplast Time 27.9 Sodium Level 140 Potassium Level 3.8 Chloride Level 102 Carbon Dioxide Level 28 Anion Gap 10 Blood Urea Nitrogen 14 Creatinine 0.86 Est Glomerular Filtrat Rate mL/min > 60 Glucose Level 131 Calcium Level 9.7 Total Bilirubin 0.7 Direct Bilirubin 0.00 Indirect Bilirubin 0.7 Aspartate Amino Transf (AST/SGOT) 22 Alanine Aminotransferase (ALT/SGPT) 28 Alkaline Phosphatase 51 Total Protein 7.7 Albumin 4.6 Globulin 3.10 Albumin/Globulin Ratio 1.48 Lipase 109 HPI/ROS Admit Date/Time Admit Date/Time Feb 14, 2019 at 01:00 Hx of Present Illness The patient is a 53-year-old male with history of the lumbar surgery with complaints of worsening lower back pain with right lower extremity radiculopathy. Patient stated that the pain got worse over the last couple of days with no relief with p.o. medication. Patient was seen by Dr. Mccullough in neurosurgery consultation and was sent to the emergency room from his office. Patient denies any fever chills denies any nausea vomiting diarrhea patient denies any shortness of breath, denies any chest pain. ROS 12 point review of system is negative except for what mentioned in HPI PMH/Family/Social Past Medical History Medical History: hypertension Medications Current Medications Ondansetron HCl (Zofran Inj) 4 mg BRIDGE ORDER PRN IV NAUSEA/VOMITING; Start 02/14/19 at 01:00; Stop 02/15/19 at 00:59 Acetaminophen (Tylenol Tab) 650 mg ER BRIDGE PRN PO .MILD PAIN 1-3 OR TEMP; Start 02/14/19 at 01:00; Stop 02/15/19 at 00:59 Coded Allergies: No Known Allergy (Unverified , 12/28/18) Past Surgical History Past Surgical Hx: appendectomy, cholecystectomy, other (status post PCDF C3-7 decompression and fusion by Dr. Mccullough on 12/29/18, status post appendectomy, status post cholecystectomy, status post right hand surgery, status post left knee meniscus surgery, status post surgery in the lumbar spine, status post nose surgery) Family History Significant Family History: no pertinent family hx Social History Alcohol Use: none Smoking Status: Never smoker Drug Use: none Exam/Review of Systems Vital Signs Vitals Vital Signs Date Temp Pulse Resp B/P (MAP) Pulse Ox O2 O2 Flow FiO2 Time Delivery Rate 02/14/19 98.1 58 16 163/94 97 Room Air 11:08 (117) Exam Constitutional: alert, oriented Neck: supple Respiratory: clear to auscultation Cardiovascular: nl pulses Gastrointestinal: soft, non-tender Musculoskeletal: nl extremities to inspection, other (Intractable lower back pain with radiation to right lower extremity) Extremities: normal pulses Neurological: nl mental status Skin: nl DANIEL Bolaños Feb 14, 2019 13:27
[2019-02-14] MEDS ORDERED: hydrALAzine 20 MG INJ IV PRN (13:30)
[2019-02-14 14:00] VITALS: Ht 177.8 cm; Wt 89.7 kg
[2019-02-14] MEDS ORDERED: HYDROmorphONE 1 MG/ML SYG IV PRN (14:00)
[2019-02-14] MEDS: DEXTROSE 5%-0.45% NACL 1,000 ML IV SCH ×2 (14:40→21:36)
--- NOTE | 2019-02-14 15:42 | CONS ---
Assessment/Plan Assessment/Plan Assessment/Plan (Daily) Impression Mechanical LBP with LE radiculopathy Previously evaluated at my office and all images mri lspine - reviewed and noted Plan Candidate for Staged surgical procedure. Anterior Lumbar two through Sacral one interbody fusion using screws today. Posterior fixation to follow in 1-2 days. ICU post op 2 units PRBC on standby Consultation Date/Type/Reason Admit Date/Time Feb 14, 2019 at 01:00 Date/Time of Note DATE: 02/14/19 TIME: 15:37 Hx of Present Illness Neurosurgery Consult Note HPI: 53 y/o male well known to Neurosurgical team and previously seen at my office and evaluated for Mechanical LBP with LE radiculopathy. Pt candidate for Anterior / Posterior decompression fusion. Pt's pain worsened and presented to ED for evaluation. MRI / CT lspine reviewed and noted. pmh/psx: per hpi/chart meds: see med recon ros: per hpi/chart Past Medical History Medical History: hypertension Home Meds Reported Medications Loratadine* (Loratadine*) 10 Mg Tablet, 10 MG PO DAILY for 30 Days, #30 02/14/19 Aspirin* (Aspirin* EC) 81 Mg Tablet.dr, 81 MG PO DAILY for 30 Days, #30 02/14/19 Ramipril (Ramipril) 5 Mg Capsule, 5 MG PO DAILY for 30 Days, #30 02/14/19 Ergocalciferol (Vitamin D2) (VITAMIN D2) 50,000 Unit Capsule, 44101 UNITS PO Q7D 02/14/19 Discontinued Scripts Neomycin Leo/Bacitrac Zn/Poly (Triple Antibiotic Ointment) 28 Gm Oint...g., 28 GM TP BID for 10 Days, #1 Prov:DANIEL TALAMANTES 01/03/19 Methocarbamol* (Methocarbamol*) 750 Mg Tablet, 750 MG PO Q8H PRN for MUSCLE SPASM, #30 TAB Prov:DANIEL TALAMANTES 01/03/19 Hydrocodone/Acetaminophen ([place] 5-325 Tablet) 1 Each Tablet, 1 EACH PO Q4, #20 TAB Prov:DANIEL TALAMANTES 01/03/19 Docusate Sodium* (Colace*) 100 Mg Capsule, 100 MG PO DAILY for 30 Days, CAP Prov:DANIEL TALAMANTES 01/03/19 Benazepril Hcl* (Benazepril Hcl*) 20 Mg Tablet, 20 MG PO DAILY for 30 Days, TAB Prov:DANIEL TALAMANTES 01/03/19 Metoprolol Tartrate* (Lopressor*) 50 Mg Tab, 50 MG PO BID for 30 Days, TAB Prov:DANIEL TALAMANTES 01/03/19 Medications Current Medications Ondansetron HCl (Zofran Inj) 4 mg BRIDGE ORDER PRN IV NAUSEA/VOMITING; Start 02/14/19 at 01:00; Stop 02/15/19 at 00:59 Acetaminophen (Tylenol Tab) 650 mg ER BRIDGE PRN PO .MILD PAIN 1-3 OR TEMP; Start 02/14/19 at 01:00; Stop 02/15/19 at 00:59 Benazepril HCl (Lotensin) 20 mg DAILY PO ; Start 02/15/19 at 09:00 Hydralazine HCl (Apresoline) 10 mg Q4H PRN IV SBP>170; Start 02/14/19 at 13:30 Hydromorphone HCl (Dilaudid) 1 mg Q4H PRN IV SEVERE PAIN LEVEL 7-10; Start 02/14/19 at 14:00 Ondansetron HCl (Zofran Inj) 4 mg Q4H PRN IV NAUSEA AND/OR VOMITING; Start 02/14/19 at 14:00 Dextrose/Sodium Chloride 1,000 ml @ 70 mls/hr [id number] IV Last administered on 02/14/19at 14:40; Admin Dose 70 MLS/HR; Start 02/14/19 at 14:00 Allergies: Coded Allergies: No Known Allergy (Unverified , 12/28/18) Past Surgical History Past Surgical Hx: appendectomy, cholecystectomy, other (status post PCDF C3-7 decompression and fusion by Dr. Armstrong on 12/29/18, status post appendectomy, status post cholecystectomy, status post right hand surgery, status post left k nee meniscus surgery, status post surgery in the lumbar spine, status post nose surgery) Social History Alcohol Use: none Smoking Status: Never smoker Drug Use: none Exam/Review of Systems Exam Vitals Vital Signs Date Temp Pulse Resp B/P (MAP) Pulse Ox O2 O2 Flow FiO2 Time Delivery Rate 02/14/19 98.1 58 16 163/94 97 Room Air 11:08 (117) Constitutional: alert, oriented Psych: no complaints Head: normocephalic Neurological: other (MS: CN: M: S: ) Results Result Diagram: 02/13/190 02/13/19 2250 Results 24hrs Laboratory Tests Test 02/13/19 22:50 White Blood Count 4.5 #L Red Blood Count 4.72 Hemoglobin 11.7 L Hematocrit 37.2 L Mean Corpuscular Volume 78.8 L Mean Corpuscular Hemoglobin 24.8 L Mean Corpuscular Hemoglobin Concent 31.5 L Red Cell Distribution Width 13.8 Platelet Count 184 Mean Platelet Volume 10.5 H Immature Granulocytes % 0.900 H Neutrophils % 55.8 Lymphocytes % 33.9 Monocytes % 6.5 Eosinophils % 2.2 Basophils % 0.7 Nucleated Red Blood Cells % 0.0 Immature Granulocytes # 0.040 H Neutrophils # 2.5 Lymphocytes # 1.5 Monocytes # 0.3 Eosinophils # 0.1 Basophils # 0.0 Nucleated Red Blood Cells # 0.0 Prothrombin Time 12.0 Prothrombin Time Ratio 0.9 INR International Normalized Ratio 0.88 Activated Partial Thromboplast Time 27.9 Sodium Level 140 Potassium Level 3.8 Chloride Level 102 Carbon Dioxide Level 28 Anion Gap 10 Blood Urea Nitrogen 14 Creatinine 0.86 Est Glomerular Filtrat Rate mL/min > 60 Glucose Level 131 Calcium Level 9.7 Total Bilirubin 0.7 Direct Bilirubin 0.00 Indirect Bilirubin 0.7 Aspartate Amino Transf (AST/SGOT) 22 Alanine Aminotransferase (ALT/SGPT) 28 Alkaline Phosphatase 51 Total Protein 7.7 Albumin 4.6 Globulin 3.10 Albumin/Globulin Ratio 1.48 Lipase 109 Medications Medication Current Medications Ondansetron HCl (Zofran Inj) 4 mg BRIDGE ORDER PRN IV NAUSEA/VOMITING; Start 02/14/19 at 01:00; Stop 02/15/19 at 00:59 Acetaminophen (Tylenol Tab) 650 mg ER BRIDGE PRN PO .MILD PAIN 1-3 OR TEMP; Start 02/14/19 at 01:00; Stop 02/15/19 at 00:59 Benazepril HCl (Lotensin) 20 mg DAILY PO ; Start 02/15/19 at 09:00 Hydralazine HCl (Apresoline) 10 mg Q4H PRN IV SBP>170; Start 02/14/19 at 13:30 Hydromorphone HCl (Dilaudid) 1 mg Q4H PRN IV SEVERE PAIN LEVEL 7-10; Start 02/14/19 at 14:00 Ondansetron HCl (Zofran Inj) 4 mg Q4H PRN IV NAUSEA AND/OR VOMITING; Start 02/14/19 at 14:00 Dextrose/Sodium Chloride 1,000 ml @ 70 mls/hr [id number] IV Last administered on 02/14/19at 14:40; Admin Dose 70 MLS/HR; Start 02/14/19 at 14:00 MARTA ARMSTRONG MD Feb 14, 2019 15:42
[2019-02-14 16:00] VITALS: BP 161/82; PULSE 68; RESP 19
--- NOTE | 2019-02-14 18:48 | PREAC ---
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 Planned procedure anterior lumbar partial or complete corpectomy, discectomy and fusion L2 - S1 Past Medical History Past Medical History: Includes Cardio: HTN Surgery & Anesthesia Issues No known issue Meds Anticoagulation: No Beta Kyaw within 24 hr: No Reason Beta Kyaw not given: Pt. not on B-Kyaw Reported Medications Loratadine* (Loratadine*) 10 Mg Tablet, 10 MG PO DAILY for 30 Days, #30 02/14/19 Aspirin* (Aspirin* EC) 81 Mg Tablet.dr, 81 MG PO DAILY for 30 Days, #30 02/14/19 Ramipril (Ramipril) 5 Mg Capsule, 5 MG PO DAILY for 30 Days, #30 02/14/19 Ergocalciferol (Vitamin D2) (VITAMIN D2) 50,000 Unit Capsule, 90591 UNITS PO Q7D 02/14/19 Discontinued Scripts Neomycin Leo/Bacitrac Zn/Poly (Triple Antibiotic Ointment) 28 Gm Oint...g., 28 GM TP BID for 10 Days, #1 Prov:DANIEL TALAMANTES 01/03/19 Methocarbamol* (Methocarbamol*) 750 Mg Tablet, 750 MG PO Q8H PRN for MUSCLE SPASM, #30 TAB Prov:DANIEL TALAMANTES 01/03/19 Hydrocodone/Acetaminophen ([place] 5-325 Tablet) 1 Each Tablet, 1 EACH PO Q4, #20 TAB Prov:DANIEL TALAMANTES 01/03/19 Docusate Sodium* (Colace*) 100 Mg Capsule, 100 MG PO DAILY for 30 Days, CAP Prov:DANIEL TALAMANTES 01/03/19 Benazepril Hcl* (Benazepril Hcl*) 20 Mg Tablet, 20 MG PO DAILY for 30 Days, TAB Prov:DANIEL TALAMANTES 01/03/19 Metoprolol Tartrate* (Lopressor*) 50 Mg Tab, 50 MG PO BID for 30 Days, TAB Prov:DANIEL TALAMANTES 01/03/19 Current Medications Ondansetron HCl (Zofran Inj) 4 mg BRIDGE ORDER PRN IV NAUSEA/VOMITING; Start 02/14/19 at 01:00; Stop 02/15/19 at 00:59 Acetaminophen (Tylenol Tab) 650 mg ER BRIDGE PRN PO .MILD PAIN 1-3 OR TEMP; Start 02/14/19 at 01:00; Stop 02/15/19 at 00:59 Benazepril HCl (Lotensin) 20 mg DAILY PO ; Start 02/15/19 at 09:00 Hydralazine HCl (Apresoline) 10 mg Q4H PRN IV SBP>170; Start 02/14/19 at 13:30 Hydromorphone HCl (Dilaudid) 1 mg Q4H PRN IV SEVERE PAIN LEVEL 7-10; Start 02/14/19 at 14:00 Ondansetron HCl (Zofran Inj) 4 mg Q4H PRN IV NAUSEA AND/OR VOMITING; Start 02/14/19 at 14:00 Dextrose/Sodium Chloride 1,000 ml @ 70 mls/hr [id number] IV Last administered on 02/14/19at 14:40; Admin Dose 70 MLS/HR; Start 02/14/19 at 14:00 Meds reviewed: Yes Allergies Coded Allergies: No Known Allergy (Unverified , 12/28/18) Allergies Reviewed: Yes Labs/Studies Labs Reviewed: Reviewed by anesthesiologist Result Diagram: 02/13/19224902/13/19 2250 Laboratory Tests 02/13/19 22:50 Blood Bank Test 02/14/19 11:35 Antibody Screen NEGATIVE Blood Product Summary Counts Blood Type O POSITIVE Crossmatch Red Blood Cells test: N/A Studies: ECG (SR), CXR (No acute pulmonary disease.) Pre-procedure Exam Last vitals Vital Signs Date Temp Pulse Resp B/P (MAP) Pulse Ox O2 O2 Flow FiO2 Time Delivery Rate 02/14/19 97.2 68 19 161/82 98 16:00 (108) 02/14/19 Room Air 11:08 Airway: Adequate mouth opening Mallampati: Mallampati II Teeth: Normal Lung: Normal Heart: Normal ASA Physical Status ASA physical status: 2 Emergency: None Planned Anesthetic General/MAC: ETT Pre-operative Attestations Prior to commencing anesthesia and surgery, the patient was re-evaluated, there was verification of: *The patient's identity *The results of appropriate recent lab work and preoperative vital signs *The above evaluation not changing prior to induction *Anesthetic plan, risk benefits, alternative and complications discussed with patient/family; questions answered; patient/family understands, accepts and wishes to proceed. MASHA HOLMAN Feb 14, 2019 18:48
--- NOTE | 2019-02-14 20:13 | PN ---
Date/Time of Note Date/Time of Note DATE: 02/14/19 TIME: 20:04 Assessment/Plan VTE Prophylaxis SCD applied (from Nsg): Yes SCD contraindicated: low risk/ambulating Pharmacological prophylaxis: NA/contraindicated Pharm contraindication: low risk/ambulating Lines/Catheters IV Catheter Type (from Nrsg): Saline Lock Central line still needed: No Urinary Cath still in place: No Assessment/Plan Assessment/Plan Neurosurgery Progress Surgery rescheduled for now Will wait for Dr. Gasca's availability to scheduled anterior lumbar fusion. Patient advised and agrees to plan. Result Diagram: 02/13/[id number]/[id number] Results 24hrs Laboratory Tests Test 02/13/19 22:50 White Blood Count 4.5 #L Red Blood Count 4.72 Hemoglobin 11.7 L Hematocrit 37.2 L Mean Corpuscular Volume 78.8 L Mean Corpuscular Hemoglobin 24.8 L Mean Corpuscular Hemoglobin Concent 31.5 L Red Cell Distribution Width 13.8 Platelet Count 184 Mean Platelet Volume 10.5 H Immature Granulocytes % 0.900 H Neutrophils % 55.8 Lymphocytes % 33.9 Monocytes % 6.5 Eosinophils % 2.2 Basophils % 0.7 Nucleated Red Blood Cells % 0.0 Immature Granulocytes # 0.040 H Neutrophils # 2.5 Lymphocytes # 1.5 Monocytes # 0.3 Eosinophils # 0.1 Basophils # 0.0 Nucleated Red Blood Cells # 0.0 Prothrombin Time 12.0 Prothrombin Time Ratio 0.9 INR International Normalized Ratio 0.88 Activated Partial Thromboplast Time 27.9 Sodium Level 140 Potassium Level 3.8 Chloride Level 102 Carbon Dioxide Level 28 Anion Gap 10 Blood Urea Nitrogen 14 Creatinine 0.86 Est Glomerular Filtrat Rate mL/min > 60 Glucose Level 131 Calcium Level 9.7 Total Bilirubin 0.7 Direct Bilirubin 0.00 Indirect Bilirubin 0.7 Aspartate Amino Transf (AST/SGOT) 22 Alanine Aminotransferase (ALT/SGPT) 28 Alkaline Phosphatase 51 Total Protein 7.7 Albumin 4.6 Globulin 3.10 Albumin/Globulin Ratio 1.48 Lipase 109 Subjective 24 Hr Interval Summary Free Text/Dictation Neurosurgery Surgery Addendum Patient advised that L2-S1 ALIF will be rescheduled emergency surgery with another patient. Patient understands and agrees. Exam/Review of Systems Exam Vitals Vital Signs Date Temp Pulse Resp B/P (MAP) Pulse Ox O2 O2 Flow FiO2 Time Delivery Rate 02/14/19 97.2 68 19 161/82 98 16:00 (108) 02/14/19 Room Air 11:08 Results Results 24hrs Laboratory Tests Test 02/13/19 22:50 White Blood Count 4.5 #L Red Blood Count 4.72 Hemoglobin 11.7 L Hematocrit 37.2 L Mean Corpuscular Volume 78.8 L Mean Corpuscular Hemoglobin 24.8 L Mean Corpuscular Hemoglobin Concent 31.5 L Red Cell Distribution Width 13.8 Platelet Count 184 Mean Platelet Volume 10.5 H Immature Granulocytes % 0.900 H Neutrophils % 55.8 Lymphocytes % 33.9 Monocytes % 6.5 Eosinophils % 2.2 Basophils % 0.7 Nucleated Red Blood Cells % 0.0 Immature Granulocytes # 0.040 H Neutrophils # 2.5 Lymphocytes # 1.5 Monocytes # 0.3 Eosinophils # 0.1 Basophils # 0.0 Nucleated Red Blood Cells # 0.0 Prothrombin Time 12.0 Prothrombin Time Ratio 0.9 INR International Normalized Ratio 0.88 Activated Partial Thromboplast Time 27.9 Sodium Level 140 Potassium Level 3.8 Chloride Level 102 Carbon Dioxide Level 28 Anion Gap 10 Blood Urea Nitrogen 14 Creatinine 0.86 Est Glomerular Filtrat Rate mL/min > 60 Glucose Level 131 Calcium Level 9.7 Total Bilirubin 0.7 Direct Bilirubin 0.00 Indirect Bilirubin 0.7 Aspartate Amino Transf (AST/SGOT) 22 Alanine Aminotransferase (ALT/SGPT) 28 Alkaline Phosphatase 51 Total Protein 7.7 Albumin 4.6 Globulin 3.10 Albumin/Globulin Ratio 1.48 Lipase 109 Medications Medication Current Medications Ondansetron HCl (Zofran Inj) 4 mg BRIDGE ORDER PRN IV NAUSEA/VOMITING; Start 02/14/19 at 01:00; Stop 02/15/19 at 00:59 Acetaminophen (Tylenol Tab) 650 mg ER BRIDGE PRN PO .MILD PAIN 1-3 OR TEMP; Start 02/14/19 at 01:00; Stop 02/15/19 at 00:59 Benazepril HCl (Lotensin) 20 mg DAILY PO ; Start 02/15/19 at 09:00 Hydralazine HCl (Apresoline) 10 mg Q4H PRN IV SBP>170; Start 02/14/19 at 13:30 Hydromorphone HCl (Dilaudid) 1 mg Q4H PRN IV SEVERE PAIN LEVEL 7-10; Start 02/14/19 at 14:00 Ondansetron HCl (Zofran Inj) 4 mg Q4H PRN IV NAUSEA AND/OR VOMITING; Start 02/14/19 at 14:00 Dextrose/Sodium Chloride 1,000 ml @ 70 mls/hr [id number] IV Last administered on 02/14/19at 14:40; Admin Dose 70 MLS/HR; Start 02/14/19 at 14:00 MARTA ARMSTRONG MD Feb 14, 2019 20:13
[2019-02-15 02:15] VITALS: BP 134/79; PULSE 66
[2019-02-15] MEDS: BENAZEPRIL 20 MG TAB PO SCH (08:47)
[2019-02-15 09:03] VITALS: BP 142/86
[2019-02-15] MEDS: DEXTROSE 5%-0.45% NACL 1,000 ML IV SCH ×2 (10:56→23:16)
[2019-02-15 15:02] VITALS: BP 122/80; PULSE 67; RESP 18
--- NOTE | 2019-02-15 16:36 | PN ---
Date/Time of Note Date/Time of Note DATE: 02/15/19 TIME: 16:33 Assessment/Plan VTE Prophylaxis Risk score (from Ns)>0 risk: 2 SCD applied (from Ns): Yes Pharmacological prophylaxis: NA/contraindicated Pharm contraindication: surgical contra Lines/Catheters IV Catheter Type (from Nrsg): Peripheral IV Urinary Cath still in place: No Assessment/Plan Hospital Course No acute events overnight, pain is adequately controlled. Pending surgery upon OR and vascular surgeon availability. 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 Patient is a candidate for anterior lumbar through sacral interbody fusion and posterior fixation. Dr. Mccullough is following in neurosurgery consultation. -Hypertension. Continue metoprolol and benazepril, IV hydralazine on a p.r.n. basis. Further recommendations based on clinical course. Plan of care discussed with Dr. Kirk. Result Diagram: 02/15/19 0446 02/15/19 0446 Results 24hrs Laboratory Tests Test 02/15/19 04:46 White Blood Count 3.7 L Red Blood Count 4.89 Hemoglobin 12.1 L Hematocrit 37.8 L Mean Corpuscular Volume 77.3 L Mean Corpuscular Hemoglobin 24.7 L Mean Corpuscular Hemoglobin Concent 32.0 Red Cell Distribution Width 13.9 Platelet Count 193 Mean Platelet Volume 10.9 H Immature Granulocytes % 0.500 H Neutrophils % 52.4 Lymphocytes % 36.1 Monocytes % 7.8 Eosinophils % 1.9 Basophils % 1.3 Nucleated Red Blood Cells % 0.0 Immature Granulocytes # 0.020 Neutrophils # 1.9 Lymphocytes # 1.3 Monocytes # 0.3 Eosinophils # 0.1 Basophils # 0.1 Nucleated Red Blood Cells # 0.0 Sodium Level 143 Potassium Level 4.1 Chloride Level 102 Carbon Dioxide Level 30 Anion Gap 11 Blood Urea Nitrogen 11 Creatinine 0.88 Est Glomerular Filtrat Rate mL/min > 60 Glucose Level 110 Calcium Level 9.1 Exam/Review of Systems Exam Vitals Vital Signs Date Temp Pulse Resp B/P (MAP) Pulse Ox O2 O2 Flow FiO2 Time Delivery Rate 02/15/19 98.3 67 18 122/80 98 Room Air 15:02 (94) Intake and Output 02/14/19 02/14/19 02/15/19 1515:00 23:00 07:00 IntakeIntake Total 450 ml 480 ml BalanceBalance 450 ml 480 ml Exam Constitutional: alert, oriented Respiratory: clear to auscultation Cardiovascular: nl pulses Gastrointestinal: soft, non-tender Musculoskeletal: nl extremities to inspection, other (Intractable lower back pain with radiation to right lower extremity) Extremities: normal pulses Neurological: nl mental status Skin: nl turgor Results Results 24hrs Laboratory Tests Test 02/15/19 04:46 White Blood Count 3.7 L Red Blood Count 4.89 Hemoglobin 12.1 L Hematocrit 37.8 L Mean Corpuscular Volume 77.3 L Mean Corpuscular Hemoglobin 24.7 L Mean Corpuscular Hemoglobin Concent 32.0 Red Cell Distribution Width 13.9 Platelet Count 193 Mean Platelet Volume 10.9 H Immature Granulocytes % 0.500 H Neutrophils % 52.4 Lymphocytes % 36.1 Monocytes % 7.8 Eosinophils % 1.9 Basophils % 1.3 Nucleated Red Blood Cells % 0.0 Immature Granulocytes # 0.020 Neutrophils # 1.9 Lymphocytes # 1.3 Monocytes # 0.3 Eosinophils # 0.1 Basophils # 0.1 Nucleated Red Blood Cells # 0.0 Sodium Level 143 Potassium Level 4.1 Chloride Level 102 Carbon Dioxide Level 30 Anion Gap 11 Blood Urea Nitrogen 11 Creatinine 0.88 Est Glomerular Filtrat Rate mL/min > 60 Glucose Level 110 Calcium Level 9.1 Medications Medication Current Medications Benazepril HCl (Lotensin) 20 mg DAILY PO Last administered on 02/15/19at 08:47; Admin Dose 20 MG; Start 02/15/19 at 09:00 Hydralazine HCl (Apresoline) 10 mg Q4H PRN IV SBP>170; Start 02/14/19 at 13:30 Hydromorphone HCl (Dilaudid) 1 mg Q4H PRN IV SEVERE PAIN LEVEL 7-10; Start 02/14/19 at 14:00 Ondansetron HCl (Zofran Inj) 4 mg Q4H PRN IV NAUSEA AND/OR VOMITING; Start 02/14/19 at 14:00 Dextrose/Sodium Chloride 1,000 ml @ 70 mls/hr [id number] IV Last administered on 02/15/19at 10:56; Admin Dose 70 MLS/HR; Start 02/14/19 at 14:00 DANIEL TALAMANTES Feb 15, 2019 16:36
[2019-02-15 20:16] VITALS: BP 135/84; PULSE 66; RESP 20
[2019-02-16 01:57] VITALS: BP 136/82; PULSE 68; RESP 17
[2019-02-16 07:28] VITALS: BP 128/76; PULSE 53; RESP 18
[2019-02-16] MEDS: BENAZEPRIL 20 MG TAB PO SCH (08:27)
--- NOTE | 2019-02-16 20:35 | DS ---
Date/Time of Note Date/Time of Note DATE: 02/16/19 TIME: 20:33 Discharge Summary Admission/Discharge Info Admit Date/Time Feb 14, 2019 at 13:54 Discharge Date/Time Feb 16, 2019 at 15:00 Patient Condition: Stable Hx of Present Illness The patient is a 53-year-old male with history of the lumbar surgery with complaints of worsening lower back pain with right lower extremity radiculopathy. Patient stated that the pain got worse over the last couple of days with no relief with p.o. medication. Patient was seen by Dr. Mccullough in neurosurgery consultation and was sent to the emergency room from his office. Patient denies any fever chills denies any nausea vomiting diarrhea patient denies any shortness of breath, denies any chest pain. Hospital Course Pt d/long home, will be scheduled for surgery with Dr Mccullough and Dr Goetz next week. 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 Patient is a candidate for anterior lumbar through sacral interbody fusion and posterior fixation. Dr. Mccullough is following in neurosurgery consultation. -Hypertension. Continue metoprolol and benazepril, IV hydralazine on a p.r.n. basis. Plan of care discussed with Dr. Kirk. Home Meds Reported Medications Loratadine* (Loratadine*) 10 Mg Tablet, 10 MG PO DAILY for 30 Days, #30 02/14/19 Aspirin* (Aspirin* EC) 81 Mg Tablet., 81 MG PO DAILY for 30 Days, #30 02/14/19 Ramipril (Ramipril) 5 Mg Capsule, 5 MG PO DAILY for 30 Days, #30 02/14/19 Ergocalciferol (Vitamin D2) (VITAMIN D2) 50,000 Unit Capsule, 99224 UNITS PO Q7D 02/14/19 Discontinued Scripts Neomycin Leo/Bacitrac Zn/Poly (Triple Antibiotic Ointment) 28 Gm Oint...g., 28 GM TP BID for 10 Days, #1 Prov:DANIEL TALAMANTES 01/03/19 Methocarbamol* (Methocarbamol*) 750 Mg Tablet, 750 MG PO Q8H PRN for MUSCLE SPASM, #30 TAB Prov:DANIEL TALAMANTES 01/03/19 Hydrocodone/Acetaminophen ([place] 5-325 Tablet) 1 Each Tablet, 1 EACH PO Q4, #20 TAB Prov:DANIEL TALAMANTES 01/03/19 Docusate Sodium* (Colace*) 100 Mg Capsule, 100 MG PO DAILY for 30 Days, CAP Prov:DANIEL TALAMANTES 01/03/19 Benazepril Hcl* (Benazepril Hcl*) 20 Mg Tablet, 20 MG PO DAILY for 30 Days, TAB Prov:DANIEL TALAMANTES 01/03/19 Metoprolol Tartrate* (Lopressor*) 50 Mg Tab, 50 MG PO BID for 30 Days, TAB Prov:DANIEL TALAMANTES 01/03/19 Follow-up Plan Follow-up with Dr. Mccullough on Wednesday Primary Care Provider Not On Staff Doctor Time spent on discharge: > 30 minutes DANIEL TALAMANTES Feb 16, 2019 20:35
[2019-02-21] MEDS ORDERED: CEFAZOLIN 1 GM INJ ONE (17:15)
[2019-02-21] MEDS ORDERED: ROCURONIUM 50 MG INJ ONE (17:15)
[2019-02-21] MEDS ORDERED: GLYCOPYRROLATE 0.4 MG INJ ONE (17:15)
[2019-02-21] MEDS ORDERED: NEOSTIGMINE 3 MG/3 ML SYRINGE ONE (17:15)
[2019-02-21] MEDS ORDERED: PROPOFOL 20 ML ONE (17:15)
[2019-02-21] MEDS ORDERED: FENTAnyl 50 MCG/ML VIAL ONE (17:16)
[2019-02-21] MEDS ORDERED: MIDAZOLAM 1 MG/ML 2 ML INJ ONE (17:16)
[2019-02-21] MEDS ORDERED: DEXAMETHASONE 4 MG/ML 5 ML INJ ONE (17:16)
[2019-02-21] MEDS ORDERED: ONDANSETRON 4 MG INJ ONE (17:16)
== END 2019-02-16 15:00 | disposition home or self-care (01) | DRG 552 ==
LOC: E/R 22:06 → MS1 02-14 01:00 → EDBEDREQ 02-14 10:09 → OBSVTOIN 02-14 13:54 → MS1 02-14 21:11
PROVIDERS: ADMIT Internal Medicine; ATTEND Internal Medicine
DX: M47.26 Other spondylosis with radiculopathy, lumbar region (principal); I10 Essential (primary) hypertension; Z79.82 Long term (current) use of aspirin; Z98.1 Arthrodesis status
CPT/HCPCS: 36415; 71045; 80048; 80053; 83690; 85025; 85610; 85730; 86850; 86900; 86901; 86920; 93005; G0378; J1170; J2405; J7040; J7042

== ENCOUNTER 2019-02-20 09:49 | Inpatient (IN) | payer BC ==
[~2019-02-20] VITALS: Ht 177.8 cm; Wt 90.0 kg
[~2019-02-20 09:49] MED LIST changes: +ASPI-817 PO; -BENA20TA4 PO; -DOCU-144 PO; +ERGO500013 PO; -HYDR-4011 PO; +LORA10TA3 PO; -METH750T2 PO; -METO-429 PO; -NEOM28OI2 TP; +RAMI5CAP64 PO
[2019-02-20] MEDS ORDERED: morphine 4 MG/ML VIAL IV STA (10:12)
[2019-02-20] MEDS ORDERED: ONDANSETRON 4 MG INJ IV STA (10:12)
[2019-02-20] MEDS ORDERED: CHOL500051 PO (10:40)
[2019-02-20] MEDS ORDERED: OMEP20CA16 PO (10:41)
[2019-02-20] MEDS ORDERED: FER325 PO (10:41)
[2019-02-20] MEDS ORDERED: MONT10TA21 PO (10:41)
[2019-02-20] MEDS ORDERED: ONDANSETRON 4 MG INJ IV PRN ×2 (11:00→16:00)
[2019-02-20] MEDS ORDERED: ACETAMINOPHEN 325 MG TAB PO PRN ×2 (11:00→16:00)
[2019-02-20 12:22] VITALS: Ht 177.8 cm; Wt 90.0 kg
--- NOTE | 2019-02-20 12:26 | ERD ---
ER Documentation Chief Complaint Chief Complaint right leg pain x few months HPI Patient is a 53-year-old male with hypertension who presents with back pain. The patient has right-sided lower back pain that radiates on his right lower extremity. He had surgery on his back 12 years ago for symptoms were similar on the left side of his body. The patient said that his neurosurgeon Dr. Mccullough sent in for admission as there is a plan for surgery tomorrow. He has "severe pain". He has had this pain for 6 to 7 months but is worsening. He said that he has had incontinence over the past 6 months. His right leg is numb. Upon review of old medical records the patient was just seen a few days ago in the emergency department and discharged. ROS All systems reviewed and are negative except as per history of present illness. Medications Home Meds Reported Medications Ferrous Sulfate* (Ferrous Sulfate*) 325 Mg Tabec, 325 MG PO DAILY, TAB 02/20/19 Omeprazole* (Omeprazole*) 20 Mg Capsule.dr, 20 MG PO DAILY, #30 CAP 02/20/19 Montelukast Sodium* (Singulair*) 10 Mg Tablet, 10 MG PO QHS, #30 TAB 02/20/19 Cholecalciferol (Vitamin D3) (Vitamin D3) 50,000 Unit Capsule, 36405 UNIT PO EVERY WEDNESDAY, CAP 02/20/19 Loratadine* (Loratadine*) 10 Mg Tablet, 10 MG PO DAILY for 30 Days, #30 02/14/19 Aspirin* (Aspirin* EC) 81 Mg Tablet.dr, 81 MG PO DAILY for 30 Days, #30 02/14/19 Ramipril (Ramipril) 5 Mg Capsule, 5 MG PO DAILY for 30 Days, #30 02/14/19 Discontinued Reported Medications Ergocalciferol (Vitamin D2) (VITAMIN D2) 50,000 Unit Capsule, 30739 UNITS PO Q7D 02/14/19 Discontinued Scripts Neomycin Leo/Bacitrac Zn/Poly (Triple Antibiotic Ointment) 28 Gm Oint...g., 28 GM TP BID for 10 Days, #1 Prov:DANIEL TALAMANTES 01/03/19 Methocarbamol* (Methocarbamol*) 750 Mg Tablet, 750 MG PO Q8H PRN for MUSCLE SPASM, #30 TAB Prov:DANIEL TALAMANTES 01/03/19 Hydrocodone/Acetaminophen ([place] 5-325 Tablet) 1 Each Tablet, 1 EACH PO Q4, #20 TAB Prov:DANIEL TALAMANTES 01/03/19 Docusate Sodium* (Colace*) 100 Mg Capsule, 100 MG PO DAILY for 30 Days, CAP Prov:BELLE TALAMANTESA 01/03/19 Benazepril Hcl* (Benazepril Hcl*) 20 Mg Tablet, 20 MG PO DAILY for 30 Days, TAB Prov:DANIEL TALAMANTES 01/03/19 Metoprolol Tartrate* (Lopressor*) 50 Mg Tab, 50 MG PO BID for 30 Days, TAB Prov:DANIEL TALAMANTES 01/03/19 Allergies Allergies: Coded Allergies: No Known Allergy (Unverified , 02/20/19) PMhx/Soc History of Surgery: Yes (CERVICAL FUSION, APPY, SEPTOPLASTY, LEFT MENISCUS SX, HAND SX, CHOLEY) Anesthesia Reaction: No Hx Neurological Disorder: No Hx Respiratory Disorders: No Hx Cardiac Disorders: Yes (HTN) Hx Psychiatric Problems: No Hx Miscellaneous Medical Probl: No Hx Alcohol Use: No Hx Substance Use: No Hx Tobacco Use: No Smoking Status: Never smoker FmHx Family History: No diabetes Physical Exam Vitals Vital Signs Date Temp Pulse Resp B/P (MAP) Pulse Ox O2 O2 Flow FiO2 Time Delivery Rate 02/20/19 98.0 69 18 143/102 98 09:53 (116) Physical Exam Const: Mild distress Head: Atraumatic Eyes: Normal Conjunctiva ENT: Normal External Ears, Nose and Mouth. Neck: Full range of motion. No meningismus. Resp: Clear to auscultation bilaterally Cardio: Regular rate and rhythm, no murmurs Abd: Soft, non tender, non distended. Normal bowel sounds Skin: No petechiae or rashes Back: No midline or flank tenderness Ext: No cyanosis, or edema Neur: Awake and alert, able to lift both legs off the bed but does have decreased sensation of the right leg Psych: Normal Mood and Affect Result Diagram: 02/20/19 1044 02/20/19 1044 Results 24 hrs Laboratory Tests Test 02/20/19 10:44 White Blood Count 4.0 10^3/ul Red Blood Count 5.20 10^6/ul Hemoglobin 12.8 g/dl Hematocrit 40.5 % Mean Corpuscular Volume 77.9 fl Mean Corpuscular Hemoglobin 24.6 pg Mean Corpuscular Hemoglobin Concent 31.6 g/dl Red Cell Distribution Width 13.7 % Platelet Count 185 10^3/UL Mean Platelet Volume 11.0 fl Immature Granulocytes % 0.500 % Neutrophils % 53.2 % Lymphocytes % 35.5 % Monocytes % 7.8 % Eosinophils % 2.0 % Basophils % 1.0 % Nucleated Red Blood Cells % 0.0 /100WBC Immature Granulocytes # 0.020 10^3/ul Neutrophils # 2.1 10^3/ul Lymphocytes # 1.4 10^3/ul Monocytes # 0.3 10^3/ul Eosinophils # 0.1 10^3/ul Basophils # 0.0 10^3/ul Nucleated Red Blood Cells # 0.0 10^3/ul Prothrombin Time 12.5 Sec Prothrombin Time Ratio 1.0 INR International Normalized Ratio 0.92 Activated Partial Thromboplast Time 30.0 Sec Sodium Level 142 mmol/L Potassium Level 4.4 mmol/L Chloride Level 105 mmol/L Carbon Dioxide Level 28 mmol/L Anion Gap 9 Blood Urea Nitrogen 13 mg/dl Creatinine 0.81 mg/dl Est Glomerular Filtrat Rate mL/min > 60 mL/min Glucose Level 107 mg/dl Calcium Level 9.5 mg/dl Troponin I < 0.012 ng/ml Current Medications Medications Dose Sig/La Start Time Status Last (Trade) Ordered Route PRN Stop Time Admin Dose Reason Admin Morphine 4 mg ONCE STAT 02/20/19 DC Sulfate IV 10:12 (morphine) 02/20/19 10:13 Ondansetron 4 mg ONCE STAT 02/20/19 DC HCl (Zofran IV 10:12 Inj) 02/20/19 10:13 Procedures/MDM EKG read by me: Rate/Rhythm: Regular rate and rhythm at a normal rate Intervals: Normal Impression: No evidence of ischemia or arrhythmia Chest x-ray read by radiology. Patient is a 53-year-old male who presents with acute lower back pain with right leg numbness. The patient was sent for admission. I will admit the patient to Dr. Kirk who has previously admitted the patient. The patient will be admitted to a medical surgical observation bed. He will be operated on tomorrow by Dr. Mccullough. Truman Horton my PA call Dr. Mccullough who confirmed this. Departure Diagnosis: Primary Impression: Intractable back pain Condition: TANNER Jeong MD Feb 20, 2019 12:26
--- NOTE | 2019-02-20 15:29 | HP ---
Date/Time of Note Date/Time of Note DATE: 02/20/19 TIME: 15:28 Assessment/Plan VTE Prophylaxis Risk score (from Nsg)>0 risk: 1 SCD applied (from Nsg): Yes Pharmacological prophylaxis: NA/contraindicated Pharm contraindication: surgical contra Lines/Catheters IV Catheter Type (from Nrsg): Saline Lock Assessment/Plan Assessment/Plan -Mechanical lower back pain with right lower extremity radiculopathy. Continue [place] and Dilaudid as needed for pain and Zofran as needed for nausea. Patient is a candidate for anterior/posterior lumbar two through sacral one interbody fusion and posterior fixation. Dr. Mccullough is following in neurosurgery consultation. -Hypertension. Continue metoprolol and benazepril, IV hydralazine on a p.r.n. basis. Further recommendations based on clinical course. Plan of care discussed with Dr. Kirk. Result Diagram: 02/20/19 1044 02/20/19 1044 Results 24hrs Laboratory Tests Test 02/20/19 10:44 White Blood Count 4.0 L Red Blood Count 5.20 Hemoglobin 12.8 L Hematocrit 40.5 L Mean Corpuscular Volume 77.9 L Mean Corpuscular Hemoglobin 24.6 L Mean Corpuscular Hemoglobin Concent 31.6 L Red Cell Distribution Width 13.7 Platelet Count 185 Mean Platelet Volume 11.0 H Immature Granulocytes % 0.500 H Neutrophils % 53.2 Lymphocytes % 35.5 Monocytes % 7.8 Eosinophils % 2.0 Basophils % 1.0 Nucleated Red Blood Cells % 0.0 Immature Granulocytes # 0.020 Neutrophils # 2.1 Lymphocytes # 1.4 Monocytes # 0.3 Eosinophils # 0.1 Basophils # 0.0 Nucleated Red Blood Cells # 0.0 Prothrombin Time 12.5 Prothrombin Time Ratio 1.0 INR International Normalized Ratio 0.92 Activated Partial Thromboplast Time 30.0 Sodium Level 142 Potassium Level 4.4 Chloride Level 105 Carbon Dioxide Level 28 Anion Gap 9 Blood Urea Nitrogen 13 Creatinine 0.81 Est Glomerular Filtrat Rate mL/min > 60 Glucose Level 107 Calcium Level 9.5 Troponin I < 0.012 HPI/ROS Admit Date/Time Admit Date/Time Feb 20, 2019 at 10:48 Hx of Present Illness Patient is a 53-year-old gentleman known to me from previous admission. Patient has mechanical lower back pain with lower extremity radiculopathy who was evaluated by Dr. Mccullough in neurosurgery consultation. Patient is a candidate for anterior/posterior L2-S1 decompression and fusion. Patient presented to the emergency room was intractable low back pain with radiation to right lower extremity. Patient denies any fever chills denies any shortness of breath denies any chest pain, denies any nausea vomiting diarrhea. Patient will undergo anterior lumbar decompression and fusion by Dr. Mccullough tomorrow. ROS 12 point review of system is negative except for what mentioned in HPI PMH/Family/Social Past Medical History Medical History: hypertension Medications Current Medications Ondansetron HCl (Zofran Inj) 4 mg BRIDGE ORDER PRN IV NAUSEA/VOMITING; Start at 11:00; Stop 02/21/19 at 10:59 Acetaminophen (Tylenol Tab) 650 mg ER BRIDGE PRN PO .MILD PAIN 1-3 OR TEMP; Start 02/20/19 at 11:00; Stop 02/21/19 at 10:59 Coded Allergies: No Known Allergy (Unverified , 02/20/19) Past Surgical History Past Surgical Hx: appendectomy, cholecystectomy, other (appendectomy, cholecystectomy, other (status post PCDF C3-7 decompression and fusion by Dr. Mccullough on 12/29/18, status post appendectomy, status post cholecystectomy, status post right hand surgery, status post left knee meniscus surgery, status post surgery in the lumbar spine, status post nose surgery) Family History Significant Family History: no pertinent family hx Social History Alcohol Use: none Smoking Status: Never smoker Drug Use: none Exam/Review of Systems Vital Signs Vitals Vital Signs Date Temp Pulse Resp B/P (MAP) Pulse Ox O2 O2 Flow FiO2 Time Delivery Rate 02/20/19 98.0 69 18 143/102 98 09:53 (116) Exam Constitutional: alert, oriented Head: normocephalic Neck: supple Respiratory: clear to auscultation Cardiovascular: nl pulses Gastrointestinal: soft, non-tender Musculoskeletal: other (Lower back pain with radiation to right lower extremity) Extremities: normal pulses Neurological: nl mental status Skin: nl DANIEL Bolaños Feb 20, 2019 15:29
[2019-02-20] MEDS: DOCUSATE SODIUM 100 MG CAP PO SCH ×2 (16:00→20:43)
[2019-02-20] MEDS ORDERED: hydrALAzine 20 MG INJ IV PRN (16:30)
[2019-02-20 17:04] VITALS: BP 160/90; PULSE 78; RESP 16
[2019-02-20 20:13] VITALS: BP 162/79; PULSE 64; RESP 18
[2019-02-20] MEDS: FAMOTIDINE 20 MG TAB PO SCH (20:27)
[2019-02-21] VITALS (28 sets, daily range): BP systolic 119–153; BP diastolic 62–92; PULSE 56–82; RESP 9–21
[2019-02-21] MEDS: FAMOTIDINE 20 MG TAB PO SCH ×2 (08:44→21:00)
[2019-02-21] MEDS: BENAZEPRIL 20 MG TAB PO SCH (08:45)
[2019-02-21] MEDS: SOD CHLORIDE 0.9% 1,000 ML IV SCH ×2 (10:37→21:35)
--- NOTE | 2019-02-21 11:39 | PREAC ---
Date/Time of Note Date/Time of Note DATE: 02/21/19 TIME: 11:38 Anesthesia Eval and Record Evaluation Time Pre-Procedure Interview DATE: 02/21/19 TIME: 11:38 Age 53 Sex male NPO: 8 hrs Preoperative diagnosis Mechanical lower back pain with right lower extremity radiculopathy Planned procedure ANTERIOR LUMBAR CORPECTOMY, DISCECTOMY and fusion L2-S1 Past Medical History Past Medical History: Includes Cardio: HTN Surgery & Anesthesia Issues No known issue Meds Anticoagulation: No Beta Kyaw within 24 hr: No Reason Beta Kyaw not given: Pt. not on B-Kyaw Reported Medications Ferrous Sulfate* (Ferrous Sulfate*) 325 Mg Tabec, 325 MG PO DAILY, TAB 02/20/19 Omeprazole* (Omeprazole*) 20 Mg Capsule.dr, 20 MG PO DAILY, #30 CAP 02/20/19 Montelukast Sodium* (Singulair*) 10 Mg Tablet, 10 MG PO QHS, #30 TAB 02/20/19 Cholecalciferol (Vitamin D3) (Vitamin D3) 50,000 Unit Capsule, 75381 UNIT PO EVERY WEDNESDAY, CAP 02/20/19 Loratadine* (Loratadine*) 10 Mg Tablet, 10 MG PO DAILY for 30 Days, #30 02/14/19 Aspirin* (Aspirin* EC) 81 Mg Tablet.dr, 81 MG PO DAILY for 30 Days, #30 02/14/19 Ramipril (Ramipril) 5 Mg Capsule, 5 MG PO DAILY for 30 Days, #30 02/14/19 Discontinued Reported Medications Ergocalciferol (Vitamin D2) (VITAMIN D2) 50,000 Unit Capsule, 86635 UNITS PO Q7D 02/14/19 Discontinued Scripts Neomycin Leo/Bacitrac Zn/Poly (Triple Antibiotic Ointment) 28 Gm Oint...g., 28 GM TP BID for 10 Days, #1 Prov:DANIEL TALAMANTES 01/03/19 Methocarbamol* (Methocarbamol*) 750 Mg Tablet, 750 MG PO Q8H PRN for MUSCLE SPASM, #30 TAB Prov:BELLE TALAMANTESA 01/03/19 Hydrocodone/Acetaminophen ([place] 5-325 Tablet) 1 Each Tablet, 1 EACH PO Q4, #20 TAB Prov:DANIEL TALAMANTES 01/03/19 Docusate Sodium* (Colace*) 100 Mg Capsule, 100 MG PO DAILY for 30 Days, CAP Prov:ALBINDANIEL 01/03/19 Benazepril Hcl* (Benazepril Hcl*) 20 Mg Tablet, 20 MG PO DAILY for 30 Days, TAB Prov:ALBINDANIEL 01/03/19 Metoprolol Tartrate* (Lopressor*) 50 Mg Tab, 50 MG PO BID for 30 Days, TAB Prov:KAELAMERI WOLFEETLANA 01/03/19 Current Medications Ondansetron HCl (Zofran Inj) 4 mg Q6H PRN IV NAUSEA/VOMITING; Start 02/20/19 at 16:00 Acetaminophen (Tylenol Tab) 650 mg Q6H PRN PO .PAIN 1-3 OR TEMP; Start 02/20/19 at 16:00 Acetaminophen/ Hydrocodone Bitart ([place] (5/325)) 2 tab Q6H PRN PO .SEVERE PAIN 7-10; Start 02/20/19 at 16:00 Hydromorphone HCl (Dilaudid) 1 mg Q4H PRN IV .SEVERE PAIN 7-10; Start 02/20/19 at 16:00 Docusate Sodium (Colace) 100 mg Q12H PO ; Start 02/20/19 at 16:00 Magnesium Hydroxide (Milk Of Mag) 30 ml DAILY PRN PO .CONSTIPATION; Start 02/20/19 at 16:00 Famotidine (Pepcid) 20 mg Q12 PO Last administered on 02/21/19at 08:44; Admin Dose 20 MG; Start 02/20/19 at 21:00 Benazepril HCl (Lotensin) 20 mg DAILY PO Last administered on 02/21/19at 08:45; Admin Dose 20 MG; Start 02/21/19 at 09:00 Hydralazine HCl (Apresoline) 10 mg Q6H PRN IV SBP>170; Start 02/20/19 at 16:30 Sodium Chloride 1,000 ml @ 75 mls/hr [id number] IV Last administered on 02/21/19at 10:37; Admin Dose 75 MLS/HR; Start 02/21/19 at 10:30 Meds reviewed: Yes Allergies Coded Allergies: No Known Allergy (Unverified , 02/20/19) Allergies Reviewed: Yes Labs/Studies Labs Reviewed: Reviewed by anesthesiologist Result Diagram: 02/21/19 0419 02/21/19 0419 Laboratory Tests 02/21/19 04:19 Blood Bank Test 02/20/19 19:10 Antibody Screen NEGATIVE Blood Product Summary Counts Blood Type O POSITIVE Crossmatch Red Blood Cells test: N/A Pre-procedure Exam Last vitals Vital Signs Date Temp Pulse Resp B/P (MAP) Pulse Ox O2 O2 Flow FiO2 Time Delivery Rate 02/21/19 98.4 59 18 127/92 97 Room Air 08:23 (104) Airway: Adequate mouth opening Mallampati: Mallampati II Teeth: Normal Lung: Normal Heart: Normal ASA Physical Status ASA physical status: 2 Emergency: None Planned Anesthetic General/MAC: ETT Pre-operative Attestations Prior to commencing anesthesia and surgery, the patient was re-evaluated, there was verification of: *The patient's identity *The results of appropriate recent lab work and preoperative vital signs *The above evaluation not changing prior to induction *Anesthetic plan, risk benefits, alternative and complications discussed with patient/family; questions answered; patient/family understands, accepts and wishes to proceed. MASHA HOLMAN Feb 21, 2019 11:39
--- NOTE | 2019-02-21 13:33 | PN ---
Date/Time of Note Date/Time of Note DATE: 02/21/19 TIME: 13:31 Assessment/Plan VTE Prophylaxis Risk score (from Ns)>0 risk: 2 SCD applied (from Ns): Yes Pharmacological prophylaxis: NA/contraindicated Pharm contraindication: surgical contra Lines/Catheters IV Catheter Type (from Nrsg): [place] Assessment/Plan Hospital Course Patient remains hemodynamically stable, pain is adequately controlled, patient will undergo surgery at 6 PM today. Assessment/Plan -Mechanical lower back pain with right lower extremity radiculopathy. Continue [place] and Dilaudid as needed for pain and Zofran as needed for nausea. Patient is a candidate for anterior/posterior lumbar two through sacral one interbody fusion and posterior fixation. Dr. Mccullough is following in neurosurgery consultation. -Hypertension. Continue metoprolol and benazepril, IV hydralazine on a p.r.n. basis. Further recommendations based on clinical course. Plan of care discussed with Dr. Kirk. Result Diagram: 02/21/19 0419 02/21/19 0419 Results 24hrs Laboratory Tests Test 02/21/19 04:19 White Blood Count 4.0 L Red Blood Count 4.95 Hemoglobin 12.1 L Hematocrit 38.9 L Mean Corpuscular Volume 78.6 L Mean Corpuscular Hemoglobin 24.4 L Mean Corpuscular Hemoglobin Concent 31.1 L Red Cell Distribution Width 13.6 Platelet Count 180 Mean Platelet Volume 11.2 H Immature Granulocytes % 1.000 H Neutrophils % 41.5 Lymphocytes % 45.7 Monocytes % 7.8 Eosinophils % 3.0 Basophils % 1.0 Nucleated Red Blood Cells % 0.0 Immature Granulocytes # 0.040 H Neutrophils # 1.7 Lymphocytes # 1.8 Monocytes # 0.3 Eosinophils # 0.1 Basophils # 0.0 Nucleated Red Blood Cells # 0.0 Sodium Level 143 Potassium Level 5.2 H Chloride Level 105 Carbon Dioxide Level 31 Anion Gap 7 Blood Urea Nitrogen 15 Creatinine 0.95 Est Glomerular Filtrat Rate mL/min > 60 Glucose Level 101 Calcium Level 9.4 Exam/Review of Systems Exam Vitals Vital Signs Date Temp Pulse Resp B/P (MAP) Pulse Ox O2 O2 Flow FiO2 Time Delivery Rate 02/21/19 98.4 59 18 127/92 97 Room Air 08:23 (104) Exam Constitutional: alert, oriented Respiratory: clear to auscultation Cardiovascular: nl pulses Gastrointestinal: soft, non-tender Musculoskeletal: other (Lower back pain with radiation to right lower extremity) Extremities: normal pulses Neurological: nl mental status Skin: nl turgor Results Results 24hrs Laboratory Tests Test 02/21/19 04:19 White Blood Count 4.0 L Red Blood Count 4.95 Hemoglobin 12.1 L Hematocrit 38.9 L Mean Corpuscular Volume 78.6 L Mean Corpuscular Hemoglobin 24.4 L Mean Corpuscular Hemoglobin Concent 31.1 L Red Cell Distribution Width 13.6 Platelet Count 180 Mean Platelet Volume 11.2 H Immature Granulocytes % 1.000 H Neutrophils % 41.5 Lymphocytes % 45.7 Monocytes % 7.8 Eosinophils % 3.0 Basophils % 1.0 Nucleated Red Blood Cells % 0.0 Immature Granulocytes # 0.040 H Neutrophils # 1.7 Lymphocytes # 1.8 Monocytes # 0.3 Eosinophils # 0.1 Basophils # 0.0 Nucleated Red Blood Cells # 0.0 Sodium Level 143 Potassium Level 5.2 H Chloride Level 105 Carbon Dioxide Level 31 Anion Gap 7 Blood Urea Nitrogen 15 Creatinine 0.95 Est Glomerular Filtrat Rate mL/min > 60 Glucose Level 101 Calcium Level 9.4 Medications Medication Current Medications Ondansetron HCl (Zofran Inj) 4 mg Q6H PRN IV NAUSEA/VOMITING; Start 02/20/19 at 16:00 Acetaminophen (Tylenol Tab) 650 mg Q6H PRN PO .PAIN 1-3 OR TEMP; Start 02/20/19 at 16:00 Acetaminophen/ Hydrocodone Bitart ([place] (5/325)) 2 tab Q6H PRN PO .SEVERE PAIN 7-10; Start 02/20/19 at 16:00 Hydromorphone HCl (Dilaudid) 1 mg Q4H PRN IV .SEVERE PAIN 7-10; Start 02/20/19 at 16:00 Docusate Sodium (Colace) 100 mg Q12H PO ; Start 02/20/19 at 16:00 Magnesium Hydroxide (Milk Of Mag) 30 ml DAILY PRN PO .CONSTIPATION; Start 02/20/19 at 16:00 Famotidine (Pepcid) 20 mg Q12 PO Last administered on 02/21/19at 08:44; Admin Dose 20 MG; Start 02/20/19 at 21:00 Benazepril HCl (Lotensin) 20 mg DAILY PO Last administered on 02/21/19at 08:45; Admin Dose 20 MG; Start 02/21/19 at 09:00 Hydralazine HCl (Apresoline) 10 mg Q6H PRN IV SBP>170; Start 02/20/19 at 16:30 Sodium Chloride 1,000 ml @ 75 mls/hr [id number] IV Last administered on 02/21/19at 10:37; Admin Dose 75 MLS/HR; Start 02/21/19 at 10:30 DANIEL TALAMANTES Feb 21, 2019 13:33
[2019-02-21] MEDS: DOCUSATE SODIUM 100 MG CAP PO SCH (16:00)
[2019-02-21] MEDS ORDERED: DESFLURANE 15 MIN ONE (17:00)
--- NOTE | 2019-02-21 18:20 | CONS ---
Assessment/Plan Assessment/Plan Assessment/Plan (Daily) Neurosurgery Consult Note Patient is well known to me and previously underwent posterior cervical fusion approximately 5-6 weeks ago. Mechanical LBP with LE Radiculopathy MRI Lspine as outpt reviewed and noted Pain unrelieved by conservative measures Plan Candidate for L2-S1 ALIF today with posterior fixation to follow in 1-2 days. ICU post op Patient understands surgery will be staged with anterior portion today and posterior fixation to follow. All risk/complications 3-5% overall as preprinted in my office consent form thoroughly discussed. All questions answered and no guarantees given ICU post op Consultation Date/Type/Reason Admit Date/Time Feb 20, 2019 at 10:48 Date/Time of Note DATE: 02/21/19 TIME: 18:16 Past Medical History Medical History: hypertension Home Meds Reported Medications Ferrous Sulfate* (Ferrous Sulfate*) 325 Mg Tabec, 325 MG PO DAILY, TAB 02/20/19 Omeprazole* (Omeprazole*) 20 Mg Capsule.dr, 20 MG PO DAILY, #30 CAP 02/20/19 Montelukast Sodium* (Singulair*) 10 Mg Tablet, 10 MG PO QHS, #30 TAB 02/20/19 Cholecalciferol (Vitamin D3) (Vitamin D3) 50,000 Unit Capsule, 86604 UNIT PO DANIELWednesday, CAP 02/20/19 Loratadine* (Loratadine*) 10 Mg Tablet, 10 MG PO DAILY for 30 Days, #30 02/14/19 Aspirin* (Aspirin* EC) 81 Mg Tablet.dr, 81 MG PO DAILY for 30 Days, #30 02/14/19 Ramipril (Ramipril) 5 Mg Capsule, 5 MG PO DAILY for 30 Days, #30 02/14/19 Discontinued Reported Medications Ergocalciferol (Vitamin D2) (VITAMIN D2) 50,000 Unit Capsule, 29843 UNITS PO Q7D 02/14/19 Discontinued Scripts Neomycin Leo/Bacitrac Zn/Poly (Triple Antibiotic Ointment) 28 Gm Oint...g., 28 GM TP BID for 10 Days, #1 Prov:DANIEL TALAMANTES 01/03/19 Methocarbamol* (Methocarbamol*) 750 Mg Tablet, 750 MG PO Q8H PRN for MUSCLE SPASM, #30 TAB Prov:DANIEL TALAMANTES 01/03/19 Hydrocodone/Acetaminophen ([place] 5-325 Tablet) 1 Each Tablet, 1 EACH PO Q4, #20 TAB Prov:DANIEL TALAMANTES 01/03/19 Docusate Sodium* (Colace*) 100 Mg Capsule, 100 MG PO DAILY for 30 Days, CAP Prov:DANIEL TALAMANTES 01/03/19 Benazepril Hcl* (Benazepril Hcl*) 20 Mg Tablet, 20 MG PO DAILY for 30 Days, TAB Prov:DANIEL TALAMANTES 01/03/19 Metoprolol Tartrate* (Lopressor*) 50 Mg Tab, 50 MG PO BID for 30 Days, TAB Prov:DANIEL TALAMANTES 01/03/19 Medications Current Medications Ondansetron HCl (Zofran Inj) 4 mg Q6H PRN IV NAUSEA/VOMITING; Start 02/20/19 at 16:00 Acetaminophen (Tylenol Tab) 650 mg Q6H PRN PO .PAIN 1-3 OR TEMP; Start 02/20/19 at 16:00 Acetaminophen/ Hydrocodone Bitart ([place] (5/325)) 2 tab Q6H PRN PO .SEVERE PAIN 7-10; Start 02/20/19 at 16:00 Hydromorphone HCl (Dilaudid) 1 mg Q4H PRN IV .SEVERE PAIN 7-10; Start 02/20/19 at 16:00 Docusate Sodium (Colace) 100 mg Q12H PO ; Start 02/20/19 at 16:00 Magnesium Hydroxide (Milk Of Mag) 30 ml DAILY PRN PO .CONSTIPATION; Start 02/20/19 at 16:00 Famotidine (Pepcid) 20 mg Q12 PO Last administered on 02/21/19at 08:44; Admin Dose 20 MG; Start 02/20/19 at 21:00 Benazepril HCl (Lotensin) 20 mg DAILY PO Last administered on 02/21/19at 08:45; Admin Dose 20 MG; Start 02/21/19 at 09:00 Hydralazine HCl (Apresoline) 10 mg Q6H PRN IV SBP>170; Start 02/20/19 at 16:30 Sodium Chloride 1,000 ml @ 75 mls/hr [id number] IV Last administered on 02/21/19at 10:37; Admin Dose 75 MLS/HR; Start 02/21/19 at 10:30 Allergies: Coded Allergies: No Known Allergy (Unverified , 02/20/19) Past Surgical History Past Surgical Hx: appendectomy, cholecystectomy, other (appendectomy, cholecystectomy, other (status post PCDF C3-7 decompression and fusion by Dr. Armstrong on 12/29/18, status post appendectomy, status post cholecystectomy, status post right hand surgery, status post left knee meniscus surgery, status post surgery in the lumbar spine, status post nose surgery) Social History Alcohol Use: none Smoking Status: Never smoker Drug Use: none Exam/Review of Systems Exam Vitals Vital Signs Date Temp Pulse Resp B/P (MAP) Pulse Ox O2 O2 Flow FiO2 Time Delivery Rate 02/21/19 98.3 60 18 119/78 98 Room Air 14:08 (92) Results Result Diagram: 02/21/19 0419 02/21/19 0419 Results 24hrs Laboratory Tests Test 02/21/19 04:19 White Blood Count 4.0 L Red Blood Count 4.95 Hemoglobin 12.1 L Hematocrit 38.9 L Mean Corpuscular Volume 78.6 L Mean Corpuscular Hemoglobin 24.4 L Mean Corpuscular Hemoglobin Concent 31.1 L Red Cell Distribution Width 13.6 Platelet Count 180 Mean Platelet Volume 11.2 H Immature Granulocytes % 1.000 H Neutrophils % 41.5 Lymphocytes % 45.7 Monocytes % 7.8 Eosinophils % 3.0 Basophils % 1.0 Nucleated Red Blood Cells % 0.0 Immature Granulocytes # 0.040 H Neutrophils # 1.7 Lymphocytes # 1.8 Monocytes # 0.3 Eosinophils # 0.1 Basophils # 0.0 Nucleated Red Blood Cells # 0.0 Sodium Level 143 Potassium Level 5.2 H Chloride Level 105 Carbon Dioxide Level 31 Anion Gap 7 Blood Urea Nitrogen 15 Creatinine 0.95 Est Glomerular Filtrat Rate mL/min > 60 Glucose Level 101 Calcium Level 9.4 Medications Medication Current Medications Ondansetron HCl (Zofran Inj) 4 mg Q6H PRN IV NAUSEA/VOMITING; Start 02/20/19 at 16:00 Acetaminophen (Tylenol Tab) 650 mg Q6H PRN PO .PAIN 1-3 OR TEMP; Start 02/20/19 at 16:00 Acetaminophen/ Hydrocodone Bitart ([place] (5/325)) 2 tab Q6H PRN PO .SEVERE PAIN 7-10; Start 02/20/19 at 16:00 Hydromorphone HCl (Dilaudid) 1 mg Q4H PRN IV .SEVERE PAIN 7-10; Start 02/20/19 at 16:00 Docusate Sodium (Colace) 100 mg Q12H PO ; Start 02/20/19 at 16:00 Magnesium Hydroxide (Milk Of Mag) 30 ml DAILY PRN PO .CONSTIPATION; Start at 16:00 Famotidine (Pepcid) 20 mg Q12 PO Last administered on 02/21/19at 08:44; Admin Dose 20 MG; Start 02/20/19 at 21:00 Benazepril HCl (Lotensin) 20 mg DAILY PO Last administered on 02/21/19at 08:45; Admin Dose 20 MG; Start 02/21/19 at 09:00 Hydralazine HCl (Apresoline) 10 mg Q6H PRN IV SBP>170; Start 02/20/19 at 16:30 Sodium Chloride 1,000 ml @ 75 mls/hr [id number] IV Last administered on 02/21/19at 10:37; Admin Dose 75 MLS/HR; Start 02/21/19 at 10:30 MARTA ARMSTRONG MD Feb 21, 2019 18:20
[2019-02-21] MEDS ORDERED: HEPARIN 1000 UNITS/ML 10 ML INJ ONE (18:32)
[2019-02-21] MEDS ORDERED: GELATIN SIZE 100 SPONGE ONE (18:39)
[2019-02-21] MEDS ORDERED: CEFAZOLIN 1 GM INJ ONE (18:52)
[2019-02-21] MEDS ORDERED: ROPIVACAINE 0.5 % 30 ML VIAL ONE (19:01)
[2019-02-21] MEDS ORDERED: SURGIFOAM POWDER 1 GM KIT MM ONE (19:29)
[2019-02-21] MEDS ORDERED: THROMBIN 5000 UNIT VIAL TOP ONE (19:29)
[2019-02-21] MEDS ORDERED: hydrALAzine 20 MG INJ ONE (19:43)
[2019-02-21] MEDS ORDERED: SUGAMMADEX SODIUM 200 MG/2 ML VIAL IV ONE (20:38)
--- NOTE | 2019-02-21 20:54 | OPPN ---
Date/Time of Note Date/Time of Note DATE: 02/21/19 TIME: 20:52 Operative Report Preoperative Diagnosis Mechanical LBP and LE radic Postoperative Diagnosis same Operation/Procedure Performed ALIF L4-S1 Surgeon see signature line retail loan originator assistant Malekmehr Second assist: KATIE NORRIS NP Anesthesia: general Estimated blood loss: 150 - 200 ml's Transfusion Required none Specimen sent Grafts/Implants PEEK cages, screws, formagraft, allograft bone Complications none MARTA ARMSTRONG MD Feb 21, 2019 20:53
[2019-02-21] MEDS ORDERED: HYDROmorphONE 1 MG/5 ML IV SYRINGE IV PRN ×3 (21:00)
[2019-02-21] MEDS ORDERED: hydrALAzine 20 MG INJ IV PRN (21:00)
[2019-02-21] MEDS ORDERED: ALBUTEROL 0.083% (NEB) 2.5 MG/3 ML AMP HHN PRN (21:00)
[2019-02-21] MEDS ORDERED: MIDAZOLAM 1 MG/ML 2 ML INJ IV PRN (21:00)
[2019-02-21] MEDS ORDERED: IPRATROPIUM (NEB) 0.5 MG/2.5 ML AMP HHN PRN (21:00)
[2019-02-21] MEDS ORDERED: DIPHENHYDRAMINE 50 MG INJ IV PRN (21:00)
[2019-02-21] MEDS ORDERED: MEPERIDINE 25 MG INJ IV PRN (21:00)
[2019-02-21] MEDS ORDERED: EPHEDrine 25 MG/5 ML SYG IV PRN (21:00)
[2019-02-21] MEDS ORDERED: TRIMETHOBENZAMIDE 100 MG/ML VIAL IM PRN (21:00)
[2019-02-21] MEDS ORDERED: ONDANSETRON 4 MG INJ IV PRN (21:00)
[2019-02-21] MEDS ORDERED: LABETALOL HCL 20MG INJ IV PRN (21:00)
[2019-02-21] MEDS ORDERED: FENTAnyl 50 MCG/ML VIAL IV PRN ×3 (21:00)
[2019-02-21] MEDS ORDERED: OXYCODONE/ACETAMINOPHEN (5/325) TAB PO PRN ×2 (21:00)
--- NOTE | 2019-02-21 23:45 | OPR ---
DATE OF OPERATION: PREOPERATIVE DIAGNOSIS: Degenerative disk disease, lumbosacral spine. POSTOPERATIVE DIAGNOSIS: Degenerative disk disease, lumbosacral spine. PROCEDURE: 1. Anterior retroperitoneal exposure, interbody fusion, L5-S1. 2. Anterior retroperitoneal exposure, interbody fusion, L4-L5. SURGEON: Vicente Goetz MD. ANESTHESIA: General. COSURGEON: Jairo Armstrong MD. ESTIMATED BLOOD LOSS: 200 mL. INFORMED CONSENT: Risks, benefits, complications, alternative therapies explained to the patient and the family, consent obtained. Risks and benefits have been explained to the patient and family incl uded but not limited to infection, bleeding, loss of limb, loss of life, DVT, PE, sexual dysfunction, retrograde ejaculation. OPERATIVE TECHNIQUE: The patient was placed in supine position, prepped and draped in usual sterile fashion. I made a 10 cm incision in left paramedian. The incision was taken down to subcutaneous ti ssue, which was then opened using electrocautery. Left anterior rectus sheath was opened in the dire ction of the wound. Left rectus muscle was mobilized superiorly and inferiorly. Posterior rectus sh eath was incised superiorly about 5 cm. Bookwalter retractor was placed retracting the bowel content s to the right, left rectus muscle to the left. I dissected the left common iliac artery and vein, e xternal iliac artery and vein. The left iliolumbar vein was ligated using 2-0 silk sutures and titan ium clips. The lowest segmental vessels were ligated in a similar fashion. Exposure for L4-L5 was o btained by retracting the vena cava and aorta to the right side. Exposure for L5-S1 was obtained bet ween the right and left common iliac artery and vein. We proceeded with the diskectomy and placement of the new cage. Please refer to Dr. Armstrong's dictation for the details of that operation. After al l x-rays were satisfactorily read by Dr. Armstrong, needle counts and sponge count was correct. The woun d was irrigated using antibiotic solution. There was good pulsation in the left common and external iliac artery. Posterior rectus sheath was closed using 0 Vicryl suture in running fashion. Anterior rectus sheath was irrigated again and closed in 2 layers of 2-0 Vicryl suture for subQ and beba f or the skin. The patient tolerated procedure well. Dictated By: VICENTE GOETZ MD FM/XU Conf#: [id number] DID#: [id number] CC: VIOLETTE WRIGHT MD; JAIRO ARMSTRONG MD;*EndCC*
[2019-02-22] VITALS (24 sets, daily range): BP systolic 111–164; BP diastolic 66–89; PULSE 67–85; RESP 11–27
[2019-02-22] MEDS: HYDROmorphONE 0.5 MG/0.5 ML SYG IV PRN ×2 (00:41→21:49)
--- NOTE | 2019-02-22 01:14 | CONS ---
DATE OF ADMISSION: 02/21/2019 DATE OF CONSULTATION: REASON FOR CONSULTATION: Evaluation for spine exposure. HISTORY OF PRESENT ILLNESS: This is a 53-year-old male with a history of degenerative disk disease, lumbosacral spine. The patient is here to undergo anterior retroperitoneal exposure and interbody fu sher of lumbosacral spine. PAST MEDICAL HISTORY: None. ALLERGIES: NONE. SOCIAL HISTORY: No smoking, drinking or drug use. MEDICATIONS: List reviewed. PHYSICAL EXAMINATION: VITAL SIGNS: Blood pressure is 132/60, pulse is 80, respirations 18. CARDIOVASCULAR: Normal S1, S2. No murmurs, gallops or rubs. LUNGS: Clear. ABDOMEN: Soft. EXTREMITIES: Warm. IMPRESSION: Degenerative disk disease, lumbosacral spine. RECOMMENDATIONS: We will proceed with anterior retroperitoneal exposure interbody fusion of lumbosacr al spine. Risks, benefits, complications, alternative therapies explained to the patient. All quest ions were answered. Dictated By: VICENTE LYNN MD FM/XU Conf#: [id number] DID#: [id number] CC: VIOLETTE WRIGHT MD;*EndCC*
[2019-02-22] MEDS: DOCUSATE SODIUM 100 MG CAP PO SCH ×2 (04:00→15:06)
[2019-02-22] MEDS: FAMOTIDINE 20 MG TAB PO SCH ×2 (08:02→21:00)
[2019-02-22] MEDS: BENAZEPRIL 20 MG TAB PO SCH (08:02)
[2019-02-22] MEDS: SOD CHLORIDE 0.9% 1,000 ML IV SCH (12:41)
--- NOTE | 2019-02-22 12:49 | PN ---
Date/Time of Note Date/Time of Note DATE: 02/22/19 TIME: 12:44 Assessment/Plan VTE Prophylaxis Risk score (from Ns)>0 risk: 10 SCD applied (from Ns): Yes Pharmacological prophylaxis: NA/contraindicated Pharm contraindication: surgical contra Lines/Catheters IV Catheter Type (from Nrsg): A Line Urinary Cath still in place: Yes Reason Cath still needed: urinary retention Assessment/Plan Hospital Course Patient is status post anterior lumbar interbody fusion yesterday, patient is awake alert, denies any pain while at rest, continue monitor in ICU plan for posterior portion of the surgery today in the afternoon. Keep patient n.p.o. Continue IV fluids. Assessment/Plan -Mechanical lower back pain with right lower extremity radiculopathy. S/p ALIF L4-S1 by Dr. Mccullough with retroperitoneal lumbar exposure by Dr. Goetz on 02/21/2019. Continue [place] and Dilaudid as needed for pain and Zofran as needed for nausea. -Hypertension. Continue metoprolol and benazepril, IV hydralazine on a p.r.n. basis. Critical care time spent is 30 minutes. Further recommendations based on clinical course. Plan of care discussed with Dr. Kirk. Result Diagram: 02/22/19 0445 02/22/19 0445 Results 24hrs Laboratory Tests Test 02/21/19 21:07 02/21/19 23:54 02/22/19 04:45 Urine Color YELLOW Urine Clarity SLIGHTLY CLOUDY A Urine pH 6.0 Urine Specific [place] 1.012 Urine Ketones TRACE A Urine Nitrite NEGATIVE Urine Bilirubin NEGATIVE Urine Urobilinogen NEGATIVE Urine Leukocyte Esterase NEGATIVE Urine Microscopic RBC > 182 H Urine Microscopic WBC 2 Urine Mucus FEW A Urine Hemoglobin 3+ H Urine Glucose NEGATIVE Urine Total Protein 2+ H White Blood Count 9.5 # 9.4 Red Blood Count 4.64 L 4.62 L Hemoglobin 11.5 L 11.3 L Hematocrit 35.6 L 34.7 L Mean Corpuscular Volume 76.7 L 75.1 L Mean Corpuscular Hemoglobin 24.8 L 24.5 L Mean Corpuscular 32.3 32.6 Hemoglobin Concent Red Cell Distribution Width 13.7 13.9 Platelet Count 175 178 Mean Platelet Volume 11.0 H 11.3 H Immature Granulocytes % 0.600 H 0.600 H Neutrophils % 91.5 H 88.7 H Lymphocytes % 6.3 L 8.2 L Monocytes % 1.3 2.4 Eosinophils % 0.0 0.0 Basophils % 0.3 0.1 Nucleated Red Blood Cells % 0.0 0.0 Immature Granulocytes # 0.060 H 0.060 H Neutrophils # 8.7 H 8.3 H Lymphocytes # 0.6 L 0.8 Monocytes # 0.1 L 0.2 L Eosinophils # 0.0 0.0 Basophils # 0.0 0.0 Nucleated Red Blood Cells # 0.0 0.0 Prothrombin Time 14.0 Prothrombin Time Ratio 1.1 INR International 1.07 Normalized Ratio Activated Partial Thromboplast 26.9 Time Sodium Level 139 137 Potassium Level 3.4 L 4.1 Chloride Level 104 105 Carbon Dioxide Level 24 21 Anion Gap 11 11 Blood Urea Nitrogen 13 15 Creatinine 1.01 1.15 Est Glomerular Filtrat > 60 > 60 Rate mL/min Glucose Level 182 177 Calcium Level 8.7 8.4 Exam/Review of Systems Exam Vitals Vital Signs Date Temp Pulse Resp B/P (MAP) Pulse Ox O2 O2 Flow FiO2 Time Delivery Rate 02/22/19 85 22 128/82 100 Room Air 09:00 (97) 02/22/19 97.8 08:00 02/22/19 2.0 05:00 Intake and Output 02/21/19 02/21/19 02/22/19 1515:00 23:00 07:00 IntakeIntake Total 20 ml 2640 ml 925 ml OutputOutput Total 2 ml 330 ml 585 ml BalanceBalance 18 ml 2310 ml 340 ml Constitutional: alert, oriented Neck: supple Respiratory: clear to auscultation Cardiovascular: regular rate and rhythm Gastrointestinal: soft, non-tender, other (That is post surgery with clean dry intact mid abdominal dressing) Musculoskeletal: nl extremities to inspection Extremities: normal pulses Neurological: nl mental status Results Results 24hrs Laboratory Tests Test 02/21/19 21:07 02/21/19 23:54 02/22/19 04:45 Urine Color YELLOW Urine Clarity SLIGHTLY CLOUDY A Urine pH 6.0 Urine Specific [place] 1.012 Urine Ketones TRACE A Urine Nitrite NEGATIVE Urine Bilirubin NEGATIVE Urine Urobilinogen NEGATIVE Urine Leukocyte Esterase NEGATIVE Urine Microscopic RBC > 182 H Urine Microscopic WBC 2 Urine Mucus FEW A Urine Hemoglobin 3+ H Urine Glucose NEGATIVE Urine Total Protein 2+ H White Blood Count 9.5 # 9.4 Red Blood Count 4.64 L 4.62 L Hemoglobin 11.5 L 11.3 L Hematocrit 35.6 L 34.7 L Mean Corpuscular Volume 76.7 L 75.1 L Mean Corpuscular Hemoglobin 24.8 L 24.5 L Mean Corpuscular 32.3 32.6 Hemoglobin Concent Red Cell Distribution Width 13.7 13.9 Platelet Count 175 178 Mean Platelet Volume 11.0 H 11.3 H Immature Granulocytes % 0.600 H 0.600 H Neutrophils % 91.5 H 88.7 H Lymphocytes % 6.3 L 8.2 L Monocytes % 1.3 2.4 Eosinophils % 0.0 0.0 Basophils % 0.3 0.1 Nucleated Red Blood Cells % 0.0 0.0 Immature Granulocytes # 0.060 H 0.060 H Neutrophils # 8.7 H 8.3 H Lymphocytes # 0.6 L 0.8 Monocytes # 0.1 L 0.2 L Eosinophils # 0.0 0.0 Basophils # 0.0 0.0 Nucleated Red Blood Cells # 0.0 0.0 Prothrombin Time 14.0 Prothrombin Time Ratio 1.1 INR International 1.07 Normalized Ratio Activated Partial Thromboplast 26.9 Time Sodium Level 139 137 Potassium Level 3.4 L 4.1 Chloride Level 104 105 Carbon Dioxide Level 24 21 Anion Gap 11 11 Blood Urea Nitrogen 13 15 Creatinine 1.01 1.15 Est Glomerular Filtrat > 60 > 60 Rate mL/min Glucose Level 182 177 Calcium Level 8.7 8.4 Medications Medication Current Medications Ondansetron HCl (Zofran Inj) 4 mg Q6H PRN IV NAUSEA/VOMITING; Start 02/20/19 at 16:00 Acetaminophen (Tylenol Tab) 650 mg Q6H PRN PO .PAIN 1-3 OR TEMP; Start 02/20/19 at 16:00 Acetaminophen/ Hydrocodone Bitart ([place] (5/325)) 2 tab Q6H PRN PO .SEVERE PAIN 7-10; Start 02/20/19 at 16:00 Hydromorphone HCl (Dilaudid) 1 mg Q4H PRN IV .SEVERE PAIN 7-10 Last a dministered on 02/22/19at 00:41; Admin Dose 1 MG; Start 02/20/19 at 16:00 Docusate Sodium (Colace) 100 mg Q12H PO ; Start 02/20/19 at 16:00 Magnesium Hydroxide (Milk Of Mag) 30 ml DAILY PRN PO .CONSTIPATION; Start 02/20/19 at 16:00 Famotidine (Pepcid) 20 mg Q12 PO Last administered on 02/21/19at 08:44; Admin Dose 20 MG; Start 02/20/19 at 21:00 Benazepril HCl (Lotensin) 20 mg DAILY PO Last administered on 02/21/19at 08:45; Admin Dose 20 MG; Start 02/21/19 at 09:00 Hydralazine HCl (Apresoline) 10 mg Q6H PRN IV SBP>170; Start 02/20/19 at 16:30 Sodium Chloride 1,000 ml @ 75 mls/hr [id number] IV Last administered on 02/22/19at 12:41; Admin Dose 75 MLS/HR; Start 02/21/19 at 10:30 DANIEL TALAMANTES Feb 22, 2019 12:49
--- NOTE | 2019-02-22 16:07 | PAC ---
Date/Time of Note Date/Time of Note DATE: 02/22/19 TIME: 16:07 Post-Anesthesia Notes Post-Anesthesia Note Last documented vital signs Vital Signs Date Temp Pulse Resp B/P (MAP) Pulse Ox O2 O2 Flow FiO2 Time Delivery Rate 02/22/19 70 16 128/69 98 Room Air 15:00 (88) 02/22/19 98.0 12:00 02/22/19 2.0 05:00 Activity: WNL Respiratory function: WNL Cardiovascular function: WNL Mental status: Baseline Pain reasonably controlled: Yes Hydration appropriate: Yes Nausea/Vomiting absent: Yes MARINO HIGGINS MD Feb 22, 2019 16:07
--- NOTE | 2019-02-22 16:31 | HPN ---
Date/Time of Note Date/Time of Note DATE: 02/22/19 TIME: 16:26 Interval H&P Admission Note Pt. seen H&P reviewed: No system changes Neurosurgery Preop Note Extensive d/w patient at bedside about all available options including surgery vs no surgery. Overall risk/complications 3-5% and benefits thoroughly discussed. All questions answered and no guarantees given. MARTA ARMSTRONG MD Feb 22, 2019 16:31
[2019-02-22] MEDS ORDERED: POLYMYXIN/BACITRACIN 1L IRRIG ONE (18:52)
[2019-02-22] MEDS ORDERED: ROPIVACAINE 0.5 % 30 ML VIAL ONE (18:52)
[2019-02-22] MEDS ORDERED: FENTAnyl 50 MCG/ML VIAL ONE (19:08)
[2019-02-22] MEDS ORDERED: THROMBIN 5000 UNIT VIAL ONE (19:26)
[2019-02-22] MEDS ORDERED: SURGIFOAM POWDER 1 GM KIT ONE (19:26)
[2019-02-22] MEDS ORDERED: GELATIN SIZE 100 SPONGE ONE (19:26)
[2019-02-22] MEDS ORDERED: LIDOCAINE 100 MG SYRINGE ONE (19:57)
[2019-02-22] MEDS ORDERED: SUCCINYLCHOLINE CHLORIDE 100 MG/5 ML SYG IV ONE (19:57)
[2019-02-22] MEDS ORDERED: CEFAZOLIN 1 GM INJ ONE (19:57)
[2019-02-22] MEDS ORDERED: SUGAMMADEX SODIUM 200 MG/2 ML VIAL IV ONE (19:57)
[2019-02-22] MEDS ORDERED: ROCURONIUM 50 MG INJ ONE (19:57)
[2019-02-22] MEDS ORDERED: PROPOFOL 20 ML ONE (19:57)
[2019-02-22] MEDS ORDERED: ROPIVACAINE 0.5 % 30 ML VIAL INJ ONE ×2 (20:00)
[2019-02-22] MEDS ORDERED: GELATIN SIZE 100 SPONGE TOP ONE (20:01)
[2019-02-22] MEDS ORDERED: THROMBIN 5000 UNIT VIAL TOP ONE (20:01)
--- NOTE | 2019-02-22 21:14 | OPPN ---
Date/Time of Note Date/Time of Note DATE: 02/22/19 TIME: 21:13 Operative Report Preoperative Diagnosis Mechanical LBP with RLE Radiculopathy Postoperative Diagnosis Same Operation/Procedure Performed Right L5-S1 decompression with L2-S1 ISF placement Surgeon see signature line res habilitation assistant SAMUEL Galvez, ACNP-BC Anesthesia: general Estimated blood loss: 50 - 100 ml's Transfusion Required none Specimen L5-S1 Disc L2-S1 Bones and Ligaments Grafts/Implants none Complications none MARTA ARMSTRONG MD Feb 22, 2019 21:14
[2019-02-23] VITALS (21 sets, daily range): BP systolic 116–148; BP diastolic 58–80; PULSE 61–84; RESP 13–26
[2019-02-23] MEDS: FAMOTIDINE 20 MG TAB PO SCH ×3 (00:14→21:12)
[2019-02-23] MEDS: SOD CHLORIDE 0.9% 1,000 ML IV SCH ×2 (00:28→13:46)
[2019-02-23] MEDS: HYDROmorphONE 0.5 MG/0.5 ML SYG IV PRN ×3 (03:12→12:42)
[2019-02-23] MEDS: DOCUSATE SODIUM 100 MG CAP PO SCH ×2 (04:25→18:21)
--- NOTE | 2019-02-23 07:37 | PAC ---
Date/Time of Note Date/Time of Note DATE: 02/23/19 TIME: 07:36 Post-Anesthesia Notes Post-Anesthesia Note Last documented vital signs Vital Signs Date Temp Pulse Resp B/P (MAP) Pulse Ox O2 O2 Flow FiO2 Time Delivery Rate 02/23/19 69 22 139/64 99 Nasal 2.0 06:00 (89) Cannula 02/23/19 98.2 04:00 Activity: WNL Respiratory function: WNL Cardiovascular function: WNL Mental status: Baseline Pain reasonably controlled: Yes Hydration appropriate: Yes Nausea/Vomiting absent: Yes MARLENI BYRNE Feb 23, 2019 07:36
[2019-02-23] MEDS: HYDROCODONE/APAP (5/325) TAB PO PRN ×3 (09:13→21:13)
[2019-02-23] MEDS: BENAZEPRIL 20 MG TAB PO SCH (09:14)
--- NOTE | 2019-02-23 13:30 | PN ---
Date/Time of Note Date/Time of Note DATE: 02/23/19 TIME: 13:25 Assessment/Plan VTE Prophylaxis Risk score (from Ns)>0 risk: 1 SCD applied (from Ns): Yes SCD contraindicated: low risk/ambulating Pharmacological prophylaxis: NA/contraindicated Pharm contraindication: low risk/ambulating Lines/Catheters [facility] A Line Central line still needed: No Urinary Cath still in place: No Assessment/Plan Assessment/Plan Impression s/p L4-S1 ALIF s/p Right L5-S1 decompression with L2-S1 decompression doing well surgical sites:CDI [place] with moderate drainage Plan okay to downgrade IS x 10 dc f/c pt/ot with brace dc destin 1-2 days and dc planning home by Wednesday/Wednesday if medically stable Result Diagram: 02/23/190 02/23/19 0440 Results 24hrs Laboratory Tests Test 02/23/19 04:40 White Blood Count 7.6 Red Blood Count 3.76 L Hemoglobin 9.3 L Hematocrit 29.5 L Mean Corpuscular Volume 78.5 L Mean Corpuscular Hemoglobin 24.7 L Mean Corpuscular Hemoglobin Concent 31.5 L Red Cell Distribution Width 14.1 Platelet Count 166 Mean Platelet Volume 11.6 H Immature Granulocytes % 0.400 Neutrophils % 78.7 H Lymphocytes % 13.5 L Monocytes % 7.3 Eosinophils % 0.0 Basophils % 0.1 Nucleated Red Blood Cells % 0.0 Immature Granulocytes # 0.030 Neutrophils # 6.0 Lymphocytes # 1.0 Monocytes # 0.6 Eosinophils # 0.0 Basophils # 0.0 Nucleated Red Blood Cells # 0.0 Sodium Level 140 Potassium Level 4.1 Chloride Level 109 Carbon Dioxide Level 24 Anion Gap 7 Blood Urea Nitrogen 17 Creatinine 1.37 H Est Glomerular Filtrat Rate mL/min 54 L Glucose Level 113 # Calcium Level 8.0 L Subjective 24 Hr Interval Summary Free Text/Dictation Neurosurgery s/p L4-S1 ALIF with posterior fixation L2-S1 & right L5-S1 decompression Exam/Review of Systems Exam Vitals Vital Signs Date Temp Pulse Resp B/P (MAP) Pulse Ox O2 O2 Flow FiO2 Time Delivery Rate 02/23/19 99.0 12:00 02/23/19 78 12:00 02/23/19 14 126/71 96 12:00 (89) 02/23/19 Room Air 09:00 02/23/19 2.0 06:00 Intake and Output 02/22/19 02/22/19 02/23/19 1515:00 23:00 07:00 IntakeIntake Total 555 ml 1500 ml 805 ml OutputOutput Total 925 ml 840 ml 600 ml BalanceBalance -370 ml 660 ml 205 ml Neurological: other (MS: AAOX4 CN: PERRL M: 5/5 strength x 4, no focal def. S: improving rle radic pain surgical site:CDI ) Results Results 24hrs Laboratory Tests Test 02/23/19 04:40 White Blood Count 7.6 Red Blood Count 3.76 L Hemoglobin 9.3 L Hematocrit 29.5 L Mean Corpuscular Volume 78.5 L Mean Corpuscular Hemoglobin 24.7 L Mean Corpuscular Hemoglobin Concent 31.5 L Red Cell Distribution Width 14.1 Platelet Count 166 Mean Platelet Volume 11.6 H Immature Granulocytes % 0.400 Neutrophils % 78.7 H Lymphocytes % 13.5 L Monocytes % 7.3 Eosinophils % 0.0 Basophils % 0.1 Nucleated Red Blood Cells % 0.0 Immature Granulocytes # 0.030 Neutrophils # 6.0 Lymphocytes # 1.0 Monocytes # 0.6 Eosinophils # 0.0 Basophils # 0.0 Nucleated Red Blood Cells # 0.0 Sodium Level 140 Potassium Level 4.1 Chloride Level 109 Carbon Dioxide Level 24 Anion Gap 7 Blood Urea Nitrogen 17 Creatinine 1.37 H Est Glomerular Filtrat Rate mL/min 54 L Glucose Level 113 # Calcium Level 8.0 L Medications Medication Current Medications Ondansetron HCl (Zofran Inj) 4 mg Q6H PRN IV NAUSEA/VOMITING Last administered on 02/22/19at 21:49; Admin Dose 4 MG; Start 02/20/19 at 16:00 Acetaminophen (Tylenol Tab) 650 mg Q6H PRN PO .PAIN 1-3 OR TEMP; Start 02/20/19 at 16:00 Acetaminophen/ Hydrocodone Bitart ([place] (5/325)) 2 tab Q6H PRN PO .SEVERE PAIN 7-10 Last administered on 02/23/19at 09:13; Admin Dose 2 TAB; Start 02/20/19 at 16:00 Hydromorphone HCl (Dilaudid) 1 mg Q4H PRN IV .SEVERE PAIN 7-10 Last administered on 02/23/19at 12:42; Admin Dose 1 MG; Start 02/20/19 at 16:00 Docusate Sodium (Colace) 100 mg Q12H PO Last administered on 02/23/19at 04:25; Admin Dose 100 MG; Start 02/20/19 at 16:00 Magnesium Hydroxide (Milk Of Mag) 30 ml DAILY PRN PO .CONSTIPATION; Start at 16:00 Famotidine (Pepcid) 20 mg Q12 PO Last administered on 02/23/19at 00:15; Admin Dose 20 MG; Start 02/20/19 at 21:00 Benazepril HCl (Lotensin) 20 mg DAILY PO Last administered on 02/23/19at 09:14; Admin Dose 20 MG; Start 02/21/19 at 09:00 Hydralazine HCl (Apresoline) 10 mg Q6H PRN IV SBP>170; Start 02/20/19 at 16:30 Sodium Chloride 1,000 ml @ 75 mls/hr [id number] IV Last administered on 02/23/19at 00:28; Admin Dose 75 MLS/HR; Start 02/21/19 at 10:30 KATIE NORIRS NP Feb 23, 2019 13:30
--- NOTE | 2019-02-23 20:06 | PN ---
Date/Time of Note Date/Time of Note DATE: 02/23/19 TIME: 20:03 Assessment/Plan VTE Prophylaxis Risk score (from Ns)>0 risk: 1 SCD applied (from Ns): Yes Pharmacological prophylaxis: NA/contraindicated Pharm contraindication: surgical contra Lines/Catheters IV Catheter Type (from Nrsg): A Line Urinary Cath still in place: No Assessment/Plan Hospital Course Patient is awake alert, pain is adequately controlled. [place] cath DCed, if patient is not able to void will do in and out catheter. Started on Urecholine. Patient is stable for transfer to [facility]. Assessment/Plan -Mechanical lower back pain with right lower extremity radiculopathy. S/p ALIF L4-S1 by Dr. Mccullough with retroperitoneal lumbar exposure by Dr. Goetz on 02/21/2019. Status post L2-S1 ISF placement on 02/22/2019. Continue [place] and Dilaudid as needed for pain and Zofran as needed for nausea. -Hypertension. Continue metoprolol and benazepril, IV hydralazine on a p.r.n. basis. Further recommendations based on clinical course. Plan of care discussed with Dr. Kirk. Result Diagram: 02/23/19 0440 02/23/19 0440 Results 24hrs Laboratory Tests Test 02/23/19 04:40 White Blood Count 7.6 Red Blood Count 3.76 L Hemoglobin 9.3 L Hematocrit 29.5 L Mean Corpuscular Volume 78.5 L Mean Corpuscular Hemoglobin 24.7 L Mean Corpuscular Hemoglobin Concent 31.5 L Red Cell Distribution Width 14.1 Platelet Count 166 Mean Platelet Volume 11.6 H Immature Granulocytes % 0.400 Neutrophils % 78.7 H Lymphocytes % 13.5 L Monocytes % 7.3 Eosinophils % 0.0 Basophils % 0.1 Nucleated Red Blood Cells % 0.0 Immature Granulocytes # 0.030 Neutrophils # 6.0 Lymphocytes # 1.0 Monocytes # 0.6 Eosinophils # 0.0 Basophils # 0.0 Nucleated Red Blood Cells # 0.0 Sodium Level 140 Potassium Level 4.1 Chloride Level 109 Carbon Dioxide Level 24 Anion Gap 7 Blood Urea Nitrogen 17 Creatinine 1.37 H Est Glomerular Filtrat Rate mL/min 54 L Glucose Level 113 # Calcium Level 8.0 L Exam/Review of Systems Exam Vitals Vital Signs Date Temp Pulse Resp B/P (MAP) Pulse Ox O2 O2 Flow FiO2 Time Delivery Rate 02/23/19 76 15 116/60 93 18:00 (78) 02/23/19 97.9 16:00 02/23/19 Room Air 09:00 02/23/19 2.0 06:00 Intake and Output 02/22/19 02/22/19 02/23/19 1515:00 23:00 07:00 IntakeIntake Total 555 ml 1500 ml 805 ml OutputOutput Total 925 ml 840 ml 600 ml BalanceBalance -370 ml 660 ml 205 ml Exam Constitutional: alert, oriented Neck: supple Respiratory: clear to auscultation Cardiovascular: regular rate and rhythm Gastrointestinal: soft, non-tender, other (S/p surgery with clean dry intact mid abdominal dressing) Musculoskeletal: nl extremities to inspection ( S/p surgery lower back) Extremities: normal pulses Neurological: nl mental status Results Results 24hrs Laboratory Tests Test 02/23/19 04:40 White Blood Count 7.6 Red Blood Count 3.76 L Hemoglobin 9.3 L Hematocrit 29.5 L Mean Corpuscular Volume 78.5 L Mean Corpuscular Hemoglobin 24.7 L Mean Corpuscular Hemoglobin Concent 31.5 L Red Cell Distribution Width 14.1 Platelet Count 166 Mean Platelet Volume 11.6 H Immature Granulocytes % 0.400 Neutrophils % 78.7 H Lymphocytes % 13.5 L Monocytes % 7.3 Eosinophils % 0.0 Basophils % 0.1 Nucleated Red Blood Cells % 0.0 Immature Granulocytes # 0.030 Neutrophils # 6.0 Lymphocytes # 1.0 Monocytes # 0.6 Eosinophils # 0.0 Basophils # 0.0 Nucleated Red Blood Cells # 0.0 Sodium Level 140 Potassium Level 4.1 Chloride Level 109 Carbon Dioxide Level 24 Anion Gap 7 Blood Urea Nitrogen 17 Creatinine 1.37 H Est Glomerular Filtrat Rate mL/min 54 L Glucose Level 113 # Calcium Level 8.0 L Medications Medication Current Medications Ondansetron HCl (Zofran Inj) 4 mg Q6H PRN IV NAUSEA/VOMITING Last administered on 02/22/19at 21:49; Admin Dose 4 MG; Start 02/20/19 at 16:00 Acetaminophen (Tylenol Tab) 650 mg Q6H PRN PO .PAIN 1-3 OR TEMP; Start 02/20/19 at 16:00 Acetaminophen/ Hydrocodone Bitart ([place] (5/325)) 2 tab Q6H PRN PO PAIN LEVEL 4-6 Last administered on 02/23/19 15:03; Admin Dose 2 TAB; Start 02/20/19 at 16:00 Hydromorphone HCl (Dilaudid) 1 mg Q4H PRN IV .SEVERE PAIN 7-10 Last administered on 02/23/19 12:42; Admin Dose 1 MG; Start 02/20/19 at 16:00 Docusate Sodium (Colace) 100 mg Q12H PO Last administered on 02/23/19 18:21; Admin Dose 100 MG; Start 02/20/19 at 16:00 Magnesium Hydroxide (Milk Of Mag) 30 ml DAILY PRN PO .CONSTIPATION; Start 02/20/19 at 16:00 Famotidine (Pepcid) 20 mg Q12 PO Last administered on 02/23/19 00:15; Admin Dose 20 MG; Start 02/20/19 at 21:00 Benazepril HCl (Lotensin) 20 mg DAILY PO Last administered on 02/23/19at 09:14; Admin Dose 20 MG; Start 02/21/19 at 09:00 Hydralazine HCl (Apresoline) 10 mg Q6H PRN IV SBP>170; Start 02/20/19 at 16:30 Sodium Chloride 1,000 ml @ 75 mls/hr [id number] IV Last administered on 02/23/19at 13:46; Admin Dose 75 MLS/HR; Start 02/21/19 at 10:30 DANIEL TALAMANTES Feb 23, 2019 20:06
[2019-02-23] MEDS: MAGNESIUM HYDROXIDE 30ML CUP PO PRN (21:09)
[2019-02-23] MEDS: BETHANECHOL 10 MG TAB PO SCH (21:13)
[2019-02-24 00:26] VITALS: BP 133/70; PULSE 78; RESP 20
[2019-02-24] MEDS: HYDROCODONE/APAP (5/325) TAB PO PRN ×3 (03:10→17:06)
[2019-02-24] MEDS: SOD CHLORIDE 0.9% 1,000 ML IV SCH (05:00)
[2019-02-24] MEDS: DOCUSATE SODIUM 100 MG CAP PO SCH ×2 (05:00→17:06)
--- NOTE | 2019-02-24 07:31 | PN ---
Date/Time of Note Date/Time of Note DATE: 02/24/19 TIME: 07:30 Assessment/Plan VTE Prophylaxis Risk score (from Ns)>0 risk: 7 SCD applied (from [facility]): Yes SCD contraindicated: other Pharmacological prophylaxis: other Pharm contraindication: other Lines/Catheters IV Catheter Type (from Nrsg): [place] Urinary Cath still in place: No Assessment/Plan Assessment/Plan -Mechanical lower back pain with right lower extremity radiculopathy. - S/p ALIF L4-S1 by Dr. Mccullough with retroperitoneal lumbar exposure by Dr. Goetz on 02/21/2019. - Status post L2-S1 ISF placement on 02/22/2019. - Continue [place] and Dilaudid as needed for pain and Zofran as needed for nausea. -Hypertension. Continue metoprolol and benazepril, IV hydralazine on a p.r.n. basis. -Acute Kidney Injury; Cr- 1.37 as of yesterday - ; no lab result yet; continue to monitor - UO 1.4 L/24 hr - Anemia- Monitor H/H Further recommendations based on clinical course. Plan of care discussed with Dr. Kirk. Result Diagram: 02/23/190 02/23/19 044 Subjective 24 Hr Interval Summary Free Text/Dictation resting; seems comfortable patient stated his back pain is controlled with pain med Cr- 1.37 as of yesterday; no lab result yet; continue to monitor UO 1.4 L/24 hr no events reported overnight Eyes: no complaints ENT: no complaints Respiratory: no complaints Cardiovascular: no complaints Gastrointestinal: no complaints Genitourinary: no complaints Musculoskeletal: back pain Skin: no complaints Neurologic: no complaints Endocrine: no complaints Lymphatic: no complaints Psychological: nl mood/affect Exam/Review of Systems Exam Vitals Vital Signs Date Temp Pulse Resp B/P (MAP) Pulse Ox O2 O2 Flow FiO2 Time Delivery Rate 02/24/19 98.2 78 20 133/70 97 00:26 (91) 02/23/19 Room Air 09:00 02/23/19 2.0 06:00 Intake and Output 02/23/19 02/23/19 02/24/19 1515:00 23:00 07:00 IntakeIntake Total 720 ml 1400 ml OutputOutput Total 290 ml 80 ml 1040 ml BalanceBalance 430 ml -80 ml 360 ml Constitutional: alert, well developed Psych: nl mood/affect Head: atraumatic Eyes: nl lids, nl sclera ENMT: nl external ears & nose, mucosa pink and moist Neck: non-tender Respiratory: clear to auscultation Cardiovascular: nl pulses, other Musculoskeletal: nl extremities to inspection, range of motion (lower back) Extremities: normal pulses Neurological: nl speech Lymph: nontender Medications Medication Current Medications Ondansetron HCl (Zofran Inj) 4 mg Q6H PRN IV NAUSEA/VOMITING Last administered on 02/22/19 21:49; Admin Dose 4 MG; Start 02/20/19 at 16:00 Acetaminophen (Tylenol Tab) 650 mg Q6H PRN PO .PAIN 1-3 OR TEMP; Start 02/20/19 at 16:00 Acetaminophen/ Hydrocodone Bitart ([place] (5/325)) 2 tab Q6H PRN PO PAIN LEVEL 4-6 Last administered on 02/24/19 03:10; Admin Dose 2 TAB; Start 02/20/19 at 16:00 Hydromorphone HCl (Dilaudid) 1 mg Q4H PRN IV .SEVERE PAIN 7-10 Last administered on 02/23/19 12:42; Admin Dose 1 MG; Start 02/20/19 at 16:00 Docusate Sodium (Colace) 100 mg Q12H PO Last administered on 02/24/19 05:00; Admin Dose 100 MG; Start 02/20/19 at 16:00 Magnesium Hydroxide (Milk Of Mag) 30 ml DAILY PRN PO .CONSTIPATION Last administered on 02/23/19 21:09; Admin Dose 30 ML; Start 02/20/19 at 16:00 Famotidine (Pepcid) 20 mg Q12 PO Last administered on 02/23/19 21:12; Admin Dose 20 MG; Start 02/20/19 at 21:00 Benazepril HCl (Lotensin) 20 mg DAILY PO Last administered on 02/23/19 09:14; Admin Dose 20 MG; Start 02/21/19 at 09:00 Hydralazine HCl (Apresoline) 10 mg Q6H PRN IV SBP>170; Start 02/20/19 at 16:30 Sodium Chloride 1,000 ml @ 75 mls/hr [id number] IV Last administered on 02/24/19at 05:00; Admin Dose 75 MLS/HR; Start 02/21/19 at 10:30 [place] Chloride (Urecholine) 10 mg TID PO Last administered on 02/23/19at 21:13; Admin Dose 10 MG; Start 02/23/19 at 21:00 ZOE MANUEL Feb 24, 2019 07:31
[2019-02-24 07:34] VITALS: BP 31/68; PULSE 82; RESP 20
[2019-02-24] MEDS: BENAZEPRIL 20 MG TAB PO SCH (08:54)
[2019-02-24] MEDS: BETHANECHOL 10 MG TAB PO SCH ×3 (08:55→20:33)
[2019-02-24] MEDS: FAMOTIDINE 20 MG TAB PO SCH ×2 (08:55→20:33)
[2019-02-24 19:40] VITALS: BP 122/73; PULSE 79; RESP 20
[2019-02-25] MEDS: HYDROCODONE/APAP (5/325) TAB PO PRN ×3 (01:56→19:36)
[2019-02-25 02:20] VITALS: BP 125/61; PULSE 84; RESP 20
[2019-02-25] MEDS: DOCUSATE SODIUM 100 MG CAP PO SCH ×2 (03:04→18:53)
[2019-02-25 07:26] VITALS: BP 130/79; PULSE 79; RESP 16
[2019-02-25] MEDS: FAMOTIDINE 20 MG TAB PO SCH ×2 (09:17→20:44)
[2019-02-25] MEDS: BETHANECHOL 10 MG TAB PO SCH ×3 (09:17→20:44)
[2019-02-25] MEDS: BENAZEPRIL 20 MG TAB PO SCH (09:17)
--- NOTE | 2019-02-25 10:45 | PN ---
Date/Time of Note Date/Time of Note DATE: 02/25/19 TIME: 10:42 Assessment/Plan VTE Prophylaxis Risk score (from Nsg)>0 risk: 6 SCD applied (from Nsg): Yes Pharmacological prophylaxis: LMWH Lines/Catheters IV Catheter Type (from Nrsg): Saline Lock Urinary Cath still in place: No Assessment/Plan Hospital Course -Mechanical lower back pain with right lower extremity radiculopathy. S/p ALIF L4-S1 by Dr. Mccullough with retroperitoneal lumbar exposure by Dr. Goetz on 02/21/2019. Status post L2-S1 ISF placement on 02/22/2019. Continue [place] and Dilaudid as needed for pain and Zofran as needed for nausea. -Hypertension. Continue metoprolol and benazepril, IV hydralazine on a p.r.n. basis. Result Diagram: 02/23/1943902/23/19439 Subjective 24 Hr Interval Summary Free Text/Dictation Patient has some pain but is doing ok. Exam/Review of Systems Exam Vitals Vital Signs Date Temp Pulse Resp B/P (MAP) Pulse Ox O2 O2 Flow FiO2 Time Delivery Rate 02/25/19 98.9 79 16 130/79 96 Room Air 07:26 (96) 02/23/19 2.0 06:00 Intake and Output 02/24/19 02/24/19 02/25/19 1515:00 23:00 07:00 IntakeIntake Total 480 ml 400 ml OutputOutput Total 720 ml 30 ml BalanceBalance 480 ml -720 ml 370 ml Constitutional: well developed Head: normocephalic, atraumatic Neck: supple Respiratory: clear to auscultation Cardiovascular: regular rate and rhythm Gastrointestinal: soft, non-tender Extremities: normal pulses Medications Medication Current Medications Ondansetron HCl (Zofran Inj) 4 mg Q6H PRN IV NAUSEA/VOMITING Last administered on 02/22/19at 21:49; Admin Dose 4 MG; Start 02/20/19 at 16:00 Acetaminophen (Tylenol Tab) 650 mg Q6H PRN PO .PAIN 1-3 OR TEMP; Start 02/20/19 at 16:00 Acetaminophen/ Hydrocodone Bitart ([place] (5/325)) 2 tab Q6H PRN PO PAIN LEVEL 4-6 Last administered on 02/25/19 01:56; Admin Dose 2 TAB; Start 02/20/19 at 16:00 Hydromorphone HCl (Dilaudid) 1 mg Q4H PRN IV .SEVERE PAIN 7-10 Last administered on 02/23/19 12:42; Admin Dose 1 MG; Start 02/20/19 at 16:00 Docusate Sodium (Colace) 100 mg Q12H PO Last administered on 02/25/19 03:04; Admin Dose 100 MG; Start 02/20/19 at 16:00 Magnesium Hydroxide (Milk Of Mag) 30 ml DAILY PRN PO .CONSTIPATION Last administered on 02/23/19 21:09; Admin Dose 30 ML; Start 02/20/19 at 16:00 Famotidine (Pepcid) 20 mg Q12 PO Last administered on 02/25/19 09:17; Admin Dose 20 MG; Start 02/20/19 at 21:00 Benazepril HCl (Lotensin) 20 mg DAILY PO Last administered on 02/25/19 09:17; Admin Dose 20 MG; Start 02/21/19 at 09:00 Hydralazine HCl (Apresoline) 10 mg Q6H PRN IV SBP>170; Start 02/20/19 at 16:30 Bethanechol Chloride (Urecholine) 10 mg TID PO Last administered on 02/25/19 09:17; Admin Dose 10 MG; Start 02/23/19 at 21:00 BRITTON RESENDEZ Feb 25, 2019 10:45
[2019-02-25 13:50] VITALS: BP 132/79; PULSE 80; RESP 16
[2019-02-25] MEDS: MAGNESIUM HYDROXIDE 30ML CUP PO PRN (13:56)
--- NOTE | 2019-02-25 13:58 | PN ---
Date/Time of Note Date/Time of Note DATE: 02/25/19 TIME: 13:57 Assessment/Plan VTE Prophylaxis Risk score (from Nsg)>0 risk: 6 SCD applied (from Ns): Yes SCD contraindicated: low risk/ambulating Pharmacological prophylaxis: NA/contraindicated Pharm contraindication: low risk/ambulating Lines/Catheters IV Catheter Type (from Nrsg): Saline Lock Central line still needed: No Urinary Cath still in place: No Assessment/Plan Assessment/Plan Impression s/p L4-S1 ALIF s/p Right L5-S1 decompression with L2-S1 decompression doing well surgical sites:CDI DESTIN with scant outpt Plan dc destin drain IS x 10 dc planning Wednesday if medically stable follow up with in 2 weeks LSO brace when oob x 6 weeks Okay to shower Wednesday Result Diagram: 02/23/1943902/23/19439 Exam/Review of Systems Exam Vitals Vital Signs Date Temp Pulse Resp B/P (MAP) Pulse Ox O2 O2 Flow FiO2 Time Delivery Rate 02/25/19 98.0 80 16 132/79 100 Room Air 13:50 (96) 02/23/19 2.0 06:00 Intake and Output 02/24/19 02/24/19 02/25/19 1515:00 23:00 07:00 IntakeIntake Total 480 ml 400 ml OutputOutput Total 720 ml 30 ml BalanceBalance 480 ml -720 ml 370 ml Medications Medication Current Medications Ondansetron HCl (Zofran Inj) 4 mg Q6H PRN IV NAUSEA/VOMITING Last administered on 02/22/19at 21:49; Admin Dose 4 MG; Start 02/20/19 at 16:00 Acetaminophen (Tylenol Tab) 650 mg Q6H PRN PO .PAIN 1-3 OR TEMP; Start 02/20/19 at 16:00 Acetaminophen/ Hydrocodone Bitart ([place] (5/325)) 2 tab Q6H PRN PO PAIN LEVEL 4-6 Last administered on 02/25/19at 11:31; Admin Dose 2 TAB; Start 02/20/19 at 16:00 Hydromorphone HCl (Dilaudid) 1 mg Q4H PRN IV .SEVERE PAIN 7-10 Last administere d on 02/23/19at 12:42; Admin Dose 1 MG; Start 02/20/19 at 16:00 Docusate Sodium (Colace) 100 mg Q12H PO Last administered on 02/25/19 03:04; Admin Dose 100 MG; Start 02/20/19 at 16:00 Magnesium Hydroxide (Milk Of Mag) 30 ml DAILY PRN PO .CONSTIPATION Last administered on 02/25/19 13:56; Admin Dose 30 ML; Start 02/20/19 at 16:00 Famotidine (Pepcid) 20 mg Q12 PO Last administered on 02/25/19 09:17; Admin Dose 20 MG; Start 02/20/19 at 21:00 Benazepril HCl (Lotensin) 20 mg DAILY PO Last administered on 02/25/19 09:17; Admin Dose 20 MG; Start 02/21/19 at 09:00 Hydralazine HCl (Apresoline) 10 mg Q6H PRN IV SBP>170; Start 02/20/19 at 16:30 Bethanechol Chloride (Urecholine) 10 mg TID PO Last administered on 02/25/19 09:17; Admin Dose 10 MG; Start 02/23/19 at 21:00 KATIE NORRIS NP Feb 25, 2019 13:58
[2019-02-25 20:00] VITALS: BP 138/79; PULSE 81; RESP 17
[2019-02-26] MEDS: HYDROCODONE/APAP (5/325) TAB PO PRN ×2 (01:54→08:40)
[2019-02-26] MEDS: DOCUSATE SODIUM 100 MG CAP PO SCH ×2 (04:00→05:52)
[2019-02-26 08:32] VITALS: BP 136/80; PULSE 71; RESP 18
[2019-02-26] MEDS: FAMOTIDINE 20 MG TAB PO SCH (08:40)
[2019-02-26] MEDS: BETHANECHOL 10 MG TAB PO SCH ×2 (08:40→13:00)
[2019-02-26] MEDS: BENAZEPRIL 20 MG TAB PO SCH (08:40)
--- NOTE | 2019-02-26 11:35 | DS ---
Date/Time of Note Date/Time of Note DATE: 02/26/19 TIME: 11:34 Discharge Summary Admission/Discharge Info Admit Date/Time Feb 21, 2019 at 13:33 Discharge Date/Time 02/26/19 Discharge Diagnosis -Mechanical lower back pain with right lower extremity radiculopathy. S/p ALIF L4-S1 by Dr. Mccullough with retroperitoneal lumbar exposure by Dr. Goetz on 02/21/2019. Status post L2-S1 ISF placement on 02/22/2019. Continue [place] and Dilaudid as needed for pain and Zofran as needed for nausea. -Hypertension. Continue metoprolol and benazepril, IV hydralazine on a p.r.n. basis. Patient Condition: Fair Consults neurosurgery Procedures ALIF L4-S1 with retroperitoneal lumbar exposure Hx of Present Illness Patient with back pain comes in for back surgery. Hospital Course Patient with back pain comes in for back surgery. Patient tolerated the surgery and when medically stable, he was discharged. -Mechanical lower back pain with right lower extremity radiculopathy. S/p ALIF L4-S1 by Dr. Mccullough with retroperitoneal lumbar exposure by Dr. Goetz on 02/21/2019. Status post L2-S1 ISF placement on 02/22/2019. Continue [place] and Dilaudid as needed for pain and Zofran as needed for nausea. -Hypertension. Continue metoprolol and benazepril, IV hydralazine on a p.r.n. basis. Home Meds Reported Medications Ferrous Sulfate* (Ferrous Sulfate*) 325 Mg Tabec, 325 MG PO DAILY, TAB 02/20/19 Omeprazole* (Omeprazole*) 20 Mg Capsule., 20 MG PO DAILY, #30 CAP 02/20/19 Montelukast Sodium* (Singulair*) 10 Mg Tablet, 10 MG PO QHS, #30 TAB 02/20/19 Cholecalciferol (Vitamin D3) (Vitamin D3) 50,000 Unit Capsule, 30645 UNIT PO EVERY WEDNESDAY, CAP 02/20/19 Loratadine* (Loratadine*) 10 Mg Tablet, 10 MG PO DAILY for 30 Days, #30 02/14/19 Aspirin* (Aspirin* EC) 81 Mg Tablet., 81 MG PO DAILY for 30 Days, #30 02/14/19 Ramipril (Ramipril) 5 Mg Capsule, 5 MG PO DAILY for 30 Days, #30 02/14/19 Discontinued Reported Medications Ergocalciferol (Vitamin D2) (VITAMIN D2) 50,000 Unit Capsule, 93879 UNITS PO Q7D 02/14/19 Primary Care Provider Not On Staff Doctor BRITTON RESENDEZ Feb 26, 2019 11:35
[2019-02-26] MEDS: MAGNESIUM HYDROXIDE 30ML CUP PO PRN (11:51)
[2019-02-26] MEDS ORDERED: BISACODYL (EC) 5 MG TAB PO ONE (12:00)
== END 2019-02-26 13:45 | disposition home or self-care (01) | DRG 455 ==
LOC: FTE 09:49 → PP2 10:48 → MS1 14:41 → OBSVTOIN 02-21 13:33 → ICU 02-21 23:30 → MS1 02-23 19:38
PROVIDERS: ADMIT Internal Medicine; ATTEND Internal Medicine
PROC: 0SG30A0 Fusion of Lumbosacral Joint with Interbody Fusion Device, Anterior Approach, Anterior Column, Open Approach (ICD-10-PCS; 2019-02-21)
PROC: 0SB20ZZ Excision of Lumbar Vertebral Disc, Open Approach (ICD-10-PCS; 2019-02-21)
PROC: 0SB40ZZ Excision of Lumbosacral Disc, Open Approach (ICD-10-PCS; 2019-02-21)
PROC: 0SG00A0 Fusion of Lumbar Vertebral Joint with Interbody Fusion Device, Anterior Approach, Anterior Column, Open Approach (ICD-10-PCS; principal; 2019-02-21 18:30)
PROC: 0SG30K1 Fusion of Lumbosacral Joint with Nonautologous Tissue Substitute, Posterior Approach, Posterior Column, Open Approach (ICD-10-PCS; 2019-02-22)
PROC: 0SG10K1 Fusion of 2 or more Lumbar Vertebral Joints with Nonautologous Tissue Substitute, Posterior Approach, Posterior Column, Open Approach (ICD-10-PCS; 2019-02-22)
PROC: 0SB40ZZ Excision of Lumbosacral Disc, Open Approach (ICD-10-PCS; 2019-02-22)
PROC: 01NB0ZZ Release Lumbar Nerve, Open Approach (ICD-10-PCS; 2019-02-22)
PROC: 01NR0ZZ Release Sacral Nerve, Open Approach (ICD-10-PCS; 2019-02-22)
DX: M51.17 Intervertebral disc disorders with radiculopathy, lumbosacral region (principal); M47.26 Other spondylosis with radiculopathy, lumbar region; M48.061 Spinal stenosis, lumbar region without neurogenic claudication; M71.38 Other bursal cyst, other site; E88.2 Lipomatosis, not elsewhere classified; I10 Essential (primary) hypertension; Z98.1 Arthrodesis status
CPT/HCPCS: 36415; 72114; 72131; 80048; 81001; 84484; 85025; 85610; 85730; 86850; 86900; 86901; 86920; 87081; 88304; 88311; 93005; 97116; 97161; 97530; 99217; G0378; C1762; J0360; J0690; J1100; J1170; J1644; J2001; J2250; J2270; J2405; J2710; J2795; J3010; J7030